=== PATIENT | female | born 1940 | race Caucasian/White ===

== ENCOUNTER 2016-09-03 09:15 | Inpatient (IN) | payer OTHER ==
[~2016-09-03] VITALS: Ht 170.2 cm; Wt 100.7 kg
[~2016-09-03 09:15] MED LIST: CALTRATE 600 +1 EACH PO; DAILY MULTIPLE1 EACH PO; IBUPROFEN400 M1 PO; METOPROLOL SUCC25 M1 PO; NAMZARIC 14 MG1 EACH PO; PROAIR HFA8.5 GM INH
--- NOTE | 2016-09-03 09:24 | NUR ---
PT BIBA FROM [facility]. PER EMS PT RESIDES IN A MEMORY CARE UNIT AT [facility] AND TODAY WHILE TRYING TO GET UP TWICE FELL ONTO HER KNEES. PT DID NOT HAVE HER WALKER NEAR HER. PT HAS NO COMPLAINTS BUT UPON ASSESSMENT OF KNEES PT GRIMACES WHEN RIGHT KNEE TOUCH. PER SPOUSE WHO IS AT BEDSIDE PT WAS AT [place] FOR A UTI IN JUNE AND TREATED WITH ABX. PT HAD A URINALYSIS AND CULTURE DONE TWO WEES AGO BUT FAMILY DOES NOT YET HAVE RESULTS
--- NOTE | 2016-09-03 09:26 | NUR ---
PT EVALUATED BY MD DILLON
--- NOTE | 2016-09-03 09:34 | ED AMS/SEIZURE/WEAK/DIZZY ---
History of Present Illness General Chief Complaint: Fall Stated Complaint: FALL Source: patient, family, old records, EMS Exam Limitations: dementia Vital Signs & Intake/Output Vital Signs & Intake/Output Vital Signs Date Time Temp Pulse Resp B/P Pulse O2 O2 Flow FiO2 Ox Delivery Rate 09/03 1434 97.2 90 18 135/73 96 Room Air 09/03 0920 98.2 90 18 142/85 97 Room Air Allergies Coded Allergies: NO KNOWN ALLERGIES (09/03/16) Reconcile Medications Acetaminophen (Mapap) 325 MG TABLET 2 TAB PO DAILY PAIN (Reported) Albuterol Sulfate (Proair Hfa) 90 MCG HFA.AER.AD 2 PUF INH Q4-6 PRN PRN BREATHING PROBLEMS (Reported) Bifidobacterium Infantis (Align) 4 MG (1 BILLION CELL) CAPSULE 1 CAP PO DAILY GI (Reported) Calcium Carbonate/Vitamin D3 (Calcium + Vitamin D Tablet) 600 MG-200 TABLET 1 TAB PO DAILY SUPPLEMENT (Reported) Citalopram Hydrobromide (Citalopram HBr) 10 MG TABLET 1 TAB PO DAILY MENTAL HEALTH (Reported) Cyanocobalamin (Vitamin B-12) 1,000 MCG TABLET 1 TAB PO DAILY SUPPLEMENT ( Reported) Hydrochlorothiazide 12.5 MG TABLET 1 TAB PO DAILY WATER PILL (Reported) Ibuprofen 400 MG TABLET 1 TAB PO Q6P PRN PAIN (Reported) Levothyroxine Sodium 88 MCG TABLET 1 TAB PO DAILY AC THYROID (Reported) Memantine HCl/Donepezil HCl (Namzaric 14 MG-10 MG Capsule) 14 MG-10 MG CAP.SPR.24 1 CAP PO DAILY DEMENTIA (Reported) Metoprolol Succinate 25 MG TAB 1 TAB PO DAILY HEART (Reported) Multivitamin (Daily Multiple Vitamin) 1 EACH TABLET 1 TAB PO DAILY SUPPLEMENT (Reported) Ennis-3 Fatty Acids/Fish Oil (Fish Oil 1,000 MG Capsule) 340 MG-1,000 MG CAPSULE 1 CAP PO DAILY SUPPLEMENT (Reported) Oxybutynin Chloride (Oxybutynin Chloride ER) 10 MG TAB.ER.24 1 TAB PO DAILY BLADDER (Reported) Ramipril 10 MG CAPSULE 1 CAP PO DAILY UNKNOWN (Reported) Ubidecarenone (Co Q-10) 100 MG CAPSULE 1 TAB PO DAILY SUPPLEMENT (Reported) Triage Note: PT BIBA FROM [facility]. PER EMS PT RESIDES IN A MEMORY CARE UNIT AT [facility] AND TODAY WHILE TRYING TO GET UP TWICE FELL ONTO HER KNEES. PT DID NOT HAVE HER WALKER NEAR HER. PT HAS NO COMPLAINTS BUT UPON ASSESSMENT OF KNEES PT GRIMACES WHEN RIGHT KNEE TOUCH. PER SPOUSE WHO IS AT BEDSIDE PT WAS AT [place] FOR A UTI IN JUNE AND TREATED WITH ABX. PT HAD A URINALYSIS AND CULTURE DONE TWO WEES AGO BUT FAMILY DOES NOT YET HAVE RESULTS Triage Nurses Notes Reviewed? yes Onset: Just prior to arrival Duration: hour(s):, continues in ED Timing: recent history Injury Environment: home Severity: moderate Modifying Factors: Improves With: rest. Worsens With: movement. LMP (ages 10-50): post menopausal : No Patient currently breastfeeds: No HPI: Prior to admission patient collapsed to knees 2. There was no fever chills nausea vomiting diarrhea abdominal pain chest pain shortness breath headache dysuria rash bleeding. She was admitted to [facility] in June for presumed seizure activity and UTI. EEG demonstrated no focal abnormalities no antiepileptics ordered. Past History Travel History Traveled to [place] past 21 day No Medical History Any Pertinent Medical History? 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 No Review of Systems Review of Systems Constitutional: Reports: see HPI, weakness. EENTM: Reports: no symptoms. Respiratory: Reports: no symptoms. Cardiovascular: Reports: no symptoms. GI: Reports: no symptoms. Genitourinary: Reports: no symptoms. Musculoskeletal: Reports: see HPI, joint pain. Skin: Reports: no symptoms. Neurological/Psychological: Reports: no symptoms. Hematologic/Endocrine: Reports: no symptoms. Immunologic/Allergic: Reports: no symptoms. All Other Systems: Reviewed and Negative Physical Exam Physical Exam General Appearance: well developed/nourished, alert, awake, anxious, mild distress, obese Head: atraumatic, normal appearance Eyes: Bilateral: normal appearance, PERRL, EOMI. Ears, Nose, Throat: normal pharynx, normal ENT inspection, hearing grossly normal, moist mucus membranes Neck: normal inspection, supple, full range of motion, no midline tenderness Respiratory: normal breath sounds, chest non-tender, no respiratory distress, quiet respiration, lungs clear Cardiovascular: regular rate/rhythm, normal peripheral pulses, norml femoral pulses equa Peripheral Pulses: 4+ carotid (R), 4+ carotid (L) Gastrointestinal: normal bowel sounds, soft, non-tender, no organomegaly Back: normal inspection, normal range of motion, no vertebral tenderness Extremities: normal range of motion, no ligament instability Neurologic/Psych: no motor/sensory deficits, awake, alert, normal mood/affect, disoriented x 3 Reflexes: 2+: bicep (R), bicep (L). Skin: intact, normal color, warm/dry Lymphatic: no anterior cervical sixto Core Measures ACS in differential dx? No CVA/TIA Diagnosis: No Severe Sepsis Present: No Septic Shock Present: No Progress Differential Diagnosis: dehydration, electrolyte imbalance, hypoxia, UTI/pyelo Plan of Care: Orders Procedure Date/time Status Regular Diet 09/04 D Active Heart Healthy Diet 09/03 D Active Pathway - chart 09/03 1335 Active Pathway - chart 09/03 1334 Active House Staff 09/03 1334 Active Patient Data 09/03 1334 Active Code Status 09/03 1334 Active Patient Data 09/03 1320 Active OXYGEN SETUP (GEN) 09/03 1259 Active Saline Lock 09/03 1259 Active Admit to inpatient 09/03 1259 Active Vital Signs 09/03 1259 Active Activity/Ambulation 09/03 1259 Active Code Status 09/03 1259 Complete Add-on Test (ER Only) 09/03 1242 Active EKG 09/03 1219 Active CULTURE,URINE 09/03 1203 Active Intake & Output 09/03 1133 Active URINALYSIS 09/03 0926 Complete TROPONIN LEVEL 09/03 0926 Complete COMPREHENSIVE METABOLIC PANEL 09/03 0926 Complete CBC WITHOUT DIFFERENTIAL 09/03 0926 Complete VTE Mechanical Prophylaxis 09/03 UNK Active Current Medications Sig/Allen Start time Last Medication Dose Stop Time Status Admin Calcium/Vitamin D 1 TAB DAILY 09/04 1000 UNVr (Caltrate 600 + D) Citalopram 10 MG DAILY 09/04 1000 UNVr Hydrobromide (Celexa) Cyanocobalamin 1,000 MCG DAILY 09/04 1000 UNVr (Vitamin B12) Hydrochlorothiazide 12.5 MG DAILY 09/04 1000 UNVr (Hydrodiuril) Lisinopril 10 MG DAILY 09/04 1000 UNVr (Prinivil) Metoprolol Tartrate 25 MG DAILY 09/04 1000 UNVr (Lopressor) Multivitamins 1 TAB DAILY 09/04 1000 AC Therapeutic (Theragran-M Vitamins Tabs) Levothyroxine Sodium 0.088 MG DAILY AC 09/04 0700 UNVr (Synthroid) Oxybutynin Chloride 10 MG BID 09/03 2200 UNVr (Ditropan) Albuterol Sulfate 2 PUF Q4-6 PRN PRN 09/03 1430 UNVr (Ventolin) Non-Formulary 0 SEE ADMIN CRITERIA 09/03 1430 UNVr Medication (NON FORMULARY) Non-Formulary 0 SEE ADMIN CRITERIA 09/03 1430 UNVr Medication (NON FORMULARY) Acetaminophen 325 MG Q6 PRN 09/03 1345 AC (Tylenol) Oxycodone HCl 5 MG Q6H PRN 09/03 1345 AC (Roxicodone) Oxycodone/ 2 TAB Q6 PRN 09/03 1345 AC Acetaminophen (Percocet) Laboratory Tests 09/03/16 1203: Urinalysis LIGHT H, Urine Color YEL, Urine Clarity HAZY H, Urine pH 6.0, Ur Specific [place] 1.020, Urine Protein TRACE H, Urine Ketones TRACE H, Urine Nitrite POS H, Urine Bilirubin NEG, Urine Urobilinogen 0.2, Ur Leukocyte Esterase SMALL H, Ur Microscopic SEDIMENT EXAMINED, Urine RBC 1-3, Urine WBC 25 -50 H, Ur Epithelial Cells FEW, Urine Bacteria MANY H, Urine Mucus FEW, Urine Hemoglobin SMALL H, Urine Glucose NEG 09/03/16 1133: Anion Gap 9, Estimated GFR > 60, BUN/Creatinine Ratio 16.7, Glucose 131 H, Calcium 9.4, Total Bilirubin 0.5, AST 32, ALT 42, Alkaline Phosphatase 68, Troponin I 0.02, Total Protein 7.3, Albumin 4.0, Globulin 3.3, Albumin/Globulin Ratio 1.2, CBC w Diff NO MAN DIFF REQ, RBC 4.58, MCV 87.4, MCH 28.7, RDW 15.6 H , MPV 8.5, Gran % 84.9 H, Lymphocytes % 8.7 L, Monocytes % 5.9, Eosinophils % 0.3, Basophils % 0.2, Absolute Granulocytes 11.1 H, Absolute Lymphocytes 1.1 L , Absolute Monocytes 0.8 H, Absolute Eosinophils 0, Absolute Basophils 0, PUBS MCHC 32.9 L Microbiology 09/03 1203 URINE ROUT: Urine Culture - RECD Diagnostic Imaging: Viewed by Me: Radiology Read. Discussed w/RAD: Radiology Read. CXR Impression: no acute abnormality Initial ED EKG: normal axis, normal intervals, normal p-waves, normal QRS complex, normal sinus rhythm, no ST T wave changes Prior EKG: unchanged Rhythm Strip: normal sinus rhythm Departure Departure Disposition: STILL A PATIENT Condition: Stable Clinical Impression Primary Impression: UTI (urinary tract infection) Qualifiers: Urinary tract infection type: site unspecified Hematuria presence: with hematuria Qualified Codes: N39.0 - Urinary tract infection, site not specified; R31.9 - Hematuria, unspecified Secondary Impressions: Asthenia Leukocytosis Qualifiers: Leukocytosis type: unspecified Qualified Code: D72.829 - Elevated white blood cell count, unspecified Referrals: UNKNOWN (PCP/Family) Departure Forms: Customer Survey General Discharge Information Admission Note Spoke With: NELSY MUKHERJEE MD Documentation of Exam: Documentation of any treatments & extenuating circumstances including Concerns Regarding Discharge (functional status, medication knowledge or non-compliance, living conditions, etc.) that warrant an admission rather than observation: IV antibiotics medication adjustment physical therapy follow cultures ensure safety as patient has had multiple falls unable to ambulate safely without assist of 2 continuing care discharge planning
[2016-09-03] MEDS ORDERED: CITALOPRAM HBR10 MG PO (10:21)
[2016-09-03] MEDS ORDERED: OXYBUTYNIN CHLO10 M1 PO (10:21)
[2016-09-03] MEDS ORDERED: HYDROCHLOROTH12.5 M2 PO (10:22)
[2016-09-03] MEDS ORDERED: RAMIPRIL10 M1 PO (10:22)
--- NOTE | 2016-09-03 10:22 | RADIOLOGY REPORT ---
EXAMINATION: XR CHEST CLINICAL INFORMATION: Pneumonia COMPARISON: Chest x-ray dated 06/24/2011 TECHNIQUE: 2 views of the chest were obtained. FINDINGS: Mild cardiomegaly. Low lung volumes. No acute airspace disease. Degenerative changes of the thoracic spine. IMPRESSION: No acute pulmonary disease.
[2016-09-03] MEDS ORDERED: VITAMIN B-121000 MC3 PO (10:24)
[2016-09-03] MEDS ORDERED: CO Q-10100 MG PO (10:25)
[2016-09-03] MEDS ORDERED: CALCIUM + VITA1 EAC1 PO (10:25)
[2016-09-03] MEDS ORDERED: FISH OIL 1,0001 EACH PO (10:26)
[2016-09-03] MEDS ORDERED: MAPAP325 M1 PO (10:27)
[2016-09-03] MEDS ORDERED: ALIGN4 M1 PO (10:28)
[2016-09-03] MEDS ORDERED: IBUPROFEN400 M1 PO (10:29)
[2016-09-03] MEDS ORDERED: LEVOTHYROXINE88 MCG PO (10:29)
[2016-09-03] MEDS ORDERED: PROAIR HFA8.5 GM INH (10:30)
--- NOTE | 2016-09-03 11:33 | NUR ---
ATTEMPTED TO AMBULATE WITH WALKER A FEW STEPS, UNABLE TO FOLLOW COMMANDS WELL, UNSTEADY ON FEET. CONFUSED CONVERSATION.
[2016-09-03 11:41] LABS: ABSOLUTE BASOPHIL COUNT 0 /CUMM (0.0-0.2); ABSOLUTE EOSINOPHIL COUNT 0 /CUMM (0.0-0.7); ABSOLUTE GRANULOCYTE CT 11.1 /CUMM (1.4-6.5); ABSOLUTE LYMPH COUNT 1.1 /CUMM (1.2-3.4); ABSOLUTE MONOCYTE COUNT 0.8 /CUMM (0.10-0.60); BASOPHIL % 0.2 % (0.0-2.0); EOSINOPHIL % 0.3 % (0-5); HEMATOCRIT 40.1 % (37-47); MEAN CORPUSCULAR HGB 28.7 PG (27.0-31.0); MEAN CORPUSCULAR HGB CONC 32.9 G/DL (33.0-37.0); MEAN CORPUSCULAR VOLUME 87.4 FL (81.0-99.0); MEAN PLATELET VOLUME 8.5 FL (7.4-10.4); PLATELET COUNT 228 /CUMM (130-400); RBC DISTRIBUTION WIDTH 15.6 % (11.5-14.5); RED BLOOD CELL CT 4.58 /CUMM (4.20-5.40); WHITE BLOOD CELL COUNT 13.1 /CUMM (4.8-10.8)
[2016-09-03 11:58] LABS: GRANULOCYTE % 84.9 % (42.2-75.2)
--- NOTE | 2016-09-03 12:03 | NUR ---
STRAIGHT CATHETERIZED FOR UA, 50 ML FOUL-SMELLING URINE OBTAINED. URINE TRIO SENT. PT REMAINS CONFUSED.
--- NOTE | 2016-09-03 12:33 | NUR ---
DIETARY CALLED FOR LUNCH TRAY.
--- NOTE | 2016-09-03 13:30 | NUR ---
INCONTINENT LARGE AMOUNT OF URINE LINE CHANGED. PERICARE GIVEN. REPOSITIONED. SKIN IS INTACT, NO BREAKDOWN.
--- NOTE | 2016-09-03 13:39 | History & Physical ---
MARY CH,HUMPHREY 09/03/16 1338: General Information and HPI MD Statement: I have seen and personally examined ALICIA CASEY and documented this H&P. The patient is a 76 year old F who was brought in by ambulance after sustaining a fall injury and weakness this morning. Source of Information: family Exam Limitations: dementia, history obtained from patient's History of Present Illness: 76 yo F with past medical history of dementia, hypertension, hyperlipidemia, hypothyroidism, GERD, recent admission at [facility] for UTI and a fall injury, was brought in by ambulance after sustaining to fall injuries earlier today, and increasing weakness. Most of the history was obtained from her , who does not live with her as the patient is living at [facility]. According to the patient 's , patient was had been feeling weak since past few days, and had a mechanical fall around 8 AM twice this morning. History is questionable here as he tells us that the patient was weak and he also mentioned that that the patient was a little lightheaded and woozy when she fell which was unwitnessed, but denied any chest pain, palpitation, shortness of breath, nausea, vomitting at the time. He did mention that the patient had similar symptoms in the beginning of June this year, when she was weak and fell down and was taken to [facility], diagnosed to have urinary tract infection, and was ruled out for any seizures after obtaining a normal EEG. He denied any loss of consciousness, incontinence, although the patient has incontinence at baseline, also denied any abnormal body movements, up rolling of eyes, froathing from her mouth. He mentioned that she probably fell down on her knees and has red area over her right knee. Patient's also mentioned that she has urinary urgency, that is, cannot hold her urine, but denies any abdominal pain, burning sensation, discoloration of urine, discharge from genitalia. Patient seemed comfortable during the whole interview and did not appear in any distress. I doubt if the patient was comprehending the whole conversation. 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 Ambulation: walker IADLs Needs Assist: shopping, housework, finances, food prep, telephone, transportation, medication admin. Review of Systems Review of Systems Constitutional: Reports: see HPI, weakness. Denies: chills, diaphoresis, fever. EENTM: Reports: no symptoms. Cardiovascular: Reports: no symptoms. Respiratory: Reports: no symptoms. GI: Reports: no symptoms. Genitourinary: Reports: see HPI, urgency. Denies: discharge, dysuria, frequency, hematuria, nocturia, pain. Musculoskeletal: Reports: no symptoms. Skin: Reports: see HPI. Neurological/Psychological: Reports: no symptoms, dementia. Hematologic/Endocrine: Reports: no symptoms. All Other Systems: Reviewed and Negative Post Menopausal: Yes Exam & Diagnostic Data Last 24 Hrs of Vital Signs/I&O Vital Signs Date Time Temp Pulse Resp B/P Pulse O2 O2 Flow FiO2 Ox Delivery Rate 09/03 2046 99.0 69 20 136/80 95 Room Air 09/03 2044 69 136/80 09/03 1845 99.6 80 18 112/70 95 Room Air 09/03 1604 80 18 119/57 98 Room Air 09/03 1434 97.2 90 18 135/73 96 Room Air 09/03 1230 98.9 76 20 136/80 100 09/03 0920 98.2 90 18 142/85 97 Room Air Intake & Output 09/03 1600 09/03 0800 09/03 0000 Intake Total 120 Output Total 50 Balance 70 Intake, IV 110 Intake, Oral 10 Output, Urine 50 Last 24 Hrs of Labs/[place]: Laboratory Tests 09/03/16 1203: Urinalysis LIGHT H, Urine Color YEL, Urine Clarity HAZY H, Urine pH 6.0, Ur Specific [place] 1.020, Urine Protein TRACE H, Urine Ketones TRACE H, Urine Nitrite POS H, Urine Bilirubin NEG, Urine Urobilinogen 0.2, Ur Leukocyte Esterase SMALL H, Ur Microscopic SEDIMENT EXAMINED, Urine RBC 1-3, Urine WBC 25 -50 H, Ur Epithelial Cells FEW, Urine Bacteria MANY H, Urine Mucus FEW, Urine Hemoglobin SMALL H, Urine Glucose NEG 09/03/16 1133: Anion Gap 9, Estimated GFR > 60, BUN/Creatinine Ratio 16.7, Glucose 131 H, Calcium 9.4, Total Bilirubin 0.5, AST 32, ALT 42, Alkaline Phosphatase 68, Troponin I 0.02, Total Protein 7.3, Albumin 4.0, Globulin 3.3, Albumin/Globulin Ratio 1.2, CBC w Diff NO MAN DIFF REQ, RBC 4.58, MCV 87.4, MCH 28.7, RDW 15.6 H , MPV 8.5, Gran % 84.9 H, Lymphocytes % 8.7 L, Monocytes % 5.9, Eosinophils % 0.3, Basophils % 0.2, Absolute Granulocytes 11.1 H, Absolute Lymphocytes 1.1 L , Absolute Monocytes 0.8 H, Absolute Eosinophils 0, Absolute Basophils 0, PUBS MCHC 32.9 L Microbiology 09/03 1445 BLOOD: Blood Culture - COLB 09/03 1445 BLOOD: Blood Culture - COLB 09/03 1203 URINE ROUT: Urine Culture - RECD Diagnostic Data CXR Results IMPRESSION: No acute pulmonary disease. DICTATED BY: AVERY CARROLL MD DATE/TIME DICTATED:09/03/161016 MOLD MAKER PLASTIC MOLDS:FRANNY DATE/TIME TRANSCRIBED:09/03/161016 Other Results Physical examnination: General: obese patient, not in distress Head: Normocephalic, atraumatic Eyes: Pupils normal in size, regular, reacting to light and accommodation, EOM normal Ears: B/l normal on inspection Nose: Normal on inspection Throat/mouth: Dry mucosa Neck: Supple, full range of motion, no thyromegaly Heart: Regular rate, regular rhythm Lung: Normal breath sound bilaterally Added sound not heard Abd: Soft, Right CVA tender, no distention appreciated Extremities: B/l knees can move easily, with mild erythema over right knee skin, no open wound, pedal edema present b/l Neurologic: Alert, demented at baseline, Speech is clear, is able to say "that hurts" on pain Skin: Warm and dry Assessment/Plan Assessment: 76 yo F with past medical history of dementia, hypertension, hyperlipidemia, hypothyroidism, GERD, recent admission at [facility] for UTI and a fall injury, was brought in by ambulance after sustaining to fall injuries earlier today, and increasing weakness. Patient's vitals were stable on presentation at the emergency department, lab work was significant for leukocytosis at 13.1, with 84.9% granulocytes, and a positive urinalysis for pyuria. Urine culture was sent on the emergency department and the patient received 1 dose of IV antibiotics there. Chest x-ray is not significant for any cardiopulmonary pathology. Patient is currently being managed in the general medical floor for the following issues: #Urinary tract infection, pyelonephritis Patient is having a second episode of urinary tract infection within 3 months, has incontinence, and has pyelonephritis clinically, and a positive urinalysis for pyuria. Need to assess for any urinary tract stones or obstruction that can predispose her to frequent urinary tract infections. -IV hydration with normal saline -IV ceftriaxone for now -Follow-up urine and blood cultures, and narrow antibiotics accordingly -Renal ultrasound to rule out any hydronephrosis, urinary tract stones or obstructions as a cause of repeated urinary tract infections -Continue oxygen treatment for bladder incontinence #Mechanical fall, secondary to physical deconditioning and weakness -Check orthostatic vitals -We'll continue to monitor right knee for any changes tomorrow -IV hydration with normal saline -Physical therapy evaluation #Hypertension -Continue home medication with hydro-thiazides and metoprolol #Dementia -Continue memantine, donepezil, multivitamins, vitamin B12 #Depression -Continue home medication of citalopram #Continue albuterol, as home medication #Regular diet #DVT prophylaxis with subcutaneous Lovenox #DNR/DNI CODE STATUS As Ranked By This Provider Problem List: 1. UTI (urinary tract infection) Qualifiers Urinary tract infection type: site unspecified Hematuria presence: with hematuria Qualified Codes: N39.0 - Urinary tract infection, site not specified; R31.9 - Hematuria, unspecified 2. Pyelonephritis Core Measures/Miscellaneous Acute Coronary Syndrome ACS Diagnosis: No Cerebrovascular Accident CVA/TIA Diagnosis: No Congestive Heart Failure CHF Diagnosis: No Venous Thromboembolism VTE Risk Factors: Age > 40 [facility] prophylaxis d/t: No contraindications No VTE Pharm Prophylaxis d/t: No contraindications VTE Diagnosis: No VTE Type: NONE VTE Confirmed by (Test): NONE Severe Sepsis Severe Sepsis Present: No Septic Shock Septic Shock Present: No Miscellaneous Documentation Attending Case Discussed With: ITA CH,JARVIS Taylor Primary Care Physician: UNKNOWN Patient sees these Specialists Internal medicine Level of Patient Care: General Medicine YUKI DANIELLE 09/03/16 1608: Resident Review Statement Resident Statement: examined this patient, discussed with rn internship Other Findings: Patient is a 76-year-old female with past medical history of dementia, hypertension, hyperlipidemia, GERD, hiatal hernia, hypothyroidism who was brought in by ambulance from rehabilitation facility with a chief complaint of weakness and fallsX2 this morning. Patient decides that the memory care unit at [facility]. Most of the history is obtained from her . The patient has been feeling weak in her legs and had 2 episodes of mechanical fall this morning. At baseline, she uses a walker to walk but today she is not using the walker. First episode of fall happened around 8 AM in the morning which was unwitnessed. She fell down on the floor and was helped up by the nurses at the facility. She was weak in her legs and had a second fall in a similar a little while later. She denied any headaches, dizziness, aura, LOC, chest pain, palpitations , nausea, vomiting, abdominal pain, bowel incontinence. Reported no fever, chills, sick contacts, recent travel. She admits to increased urgency of urination however denies any dysuria, hematuria, back pain. She is incontinent at baseline and uses a diaper at the facility. Of note, patient was admitted with similar complaints of weakness and mechanical fall and was admitted at [facility] in June 2016. She was treated with IV antibiotics for a UTI and also had a syncope/seizure workup. She had an EEG at that time which was normal. Patient does not smoke, no alcohol abuse, no drug use. In the ER vitals temperature 98.2, pulse 90, respiration 18, blood pressure 142/ 85, saturating 97% on room. White count of 13.1 with no bandemia, sodium 139, potassium 4, creatinine 0.9, BUN 15, normal LFTs, troponin negative. UA showed hazy urine, trace ketones, trace protein, nitrate positive, small leukocyte esterase, 25 -50 WBCs, many bacteria, small hemoglobin. Physical examination: Gen.: Obese, alert oriented X2 HEENT: PERRLA, EOMI Chest: Clear breath sounds CVS: No murmur, S1 and S2 heard Abdomen: Bowel sounds positive, no tenderness,+++ CVA tenderness on the right side Extremities: 1+ pitting edema on the bilateral ankles. Dry and scaly skin on bilateral legs. Erythematous areas seen over the right knee with tenderness upon palpation. No ROM. Neurological: Power 5/5 in all extremities, cranial nerves intact, reflexes intact pulses intact. Plan: 1.Urinary tract infection. Second episode due to UTI in 2 months. Positive CVA tenderness. Urinary incontinence(chronic) -Admit patient to [facility] -IV hydration with normal saline at 100 mL an hour( 2 bags) -IV ceftriaxone pending culture and sensitivities -Blood cultures and urine cultures sent -Renal ultrasound to rule out hydronephrosis -Tylenol for fever -CBCs in am. -Continue oxybutynin for incontinence bladder. 2. Mechanical fall 2/2 physical deconditioning and weakness and UTI -Check orthostatic vitals -IV hydration with normal saline -Physical therapy evaluation 3. Hypertension -Continue home meds, HCTZ and metoprolol 4. Dementia -Continue Memantine/ Donezepil -Continue B12 and multivitamin Continue home meds citalopram and albuterol DVT prophylaxis subcutaneous Lovenox Regular diet Mild pain pathway DNR/DNI JARVIS JEAN BAPTISTE 09/24/162100: General Information and HPI Allergies/Medications Home Med list Acetaminophen (Mapap) 325 MG TABLET 2 TAB PO DAILY PAIN (Reported) Albuterol Sulfate (Proair Hfa) 90 MCG HFA.AER.AD 2 PUF INH Q4-6 PRN PRN BREATHING PROBLEMS (Reported) Bifidobacterium Infantis (Align) 4 MG (1 BILLION CELL) CAPSULE 1 CAP PO DAILY GI (Reported) Calcium Carbonate/Vitamin D3 (Calcium + Vitamin D Tablet) 600 MG-200 TABLET 1 TAB PO DAILY SUPPLEMENT (Reported) Citalopram Hydrobromide (Citalopram HBr) 10 MG TABLET 1 TAB PO DAILY MENTAL HEALTH (Reported) Cyanocobalamin (Vitamin B-12) 1,000 MCG TABLET 1 TAB PO DAILY SUPPLEMENT ( Reported) Hydrochlorothiazide 12.5 MG TABLET 1 TAB PO DAILY WATER PILL (Reported) Ibuprofen 400 MG TABLET 1 TAB PO Q6P PRN PAIN (Reported) Levothyroxine Sodium 88 MCG TABLET 1 TAB PO DAILY AC THYROID (Reported) Memantine HCl/Donepezil HCl (Namzaric 14 MG-10 MG Capsule) 14 MG-10 MG CAP.SPR.24 1 CAP PO DAILY DEMENTIA (Reported) Metoprolol Succinate 25 MG TAB 1 TAB PO DAILY HEART (Reported) Multivitamin (Daily Multiple Vitamin) 1 EACH TABLET 1 TAB PO DAILY SUPPLEMENT (Reported) [place]-3 Fatty Acids/Fish Oil (Fish Oil 1,000 MG Capsule) 340 MG-1,000 MG CAPSULE 1 CAP PO DAILY SUPPLEMENT (Reported) Oxybutynin Chloride 5 MG TABLET 2.5 MG PO BID INCONTINENT BLADDER Ramipril 10 MG CAPSULE 1 CAP PO DAILY UNKNOWN (Reported) Ubidecarenone (Co Q-10) 100 MG CAPSULE 1 TAB PO DAILY SUPPLEMENT (Reported) Attending MD Review Statement Attending Statement Attending MD Statement: examined this patient, discuss w/resident/PA/GROUP TESTER, agreed w/resident/PA/GROUP TESTER, reviewed EMR data (avail), discussed with nursing Attending Assessment/Plan: Please see my attending note for more details. Agree with the above assessment and plan.
--- NOTE | 2016-09-03 14:29 | NUR ---
HOUSE STAFF HERE TO EVALUATE. AT BEDSIDE.
--- NOTE | 2016-09-03 15:30 | NUR ---
SLEEPING. IV INFUSING.
--- NOTE | 2016-09-03 15:45 | NUR ---
DR. HANNY SOMMER.
--- NOTE | 2016-09-03 16:08 | Admission Certification ---
Admission Certification Certification Statement - As attending physician, I certify that at the time of - admission, based on clinical presentation, severity of - symptoms, need for further diagnostic testing and - therapeutic interventions, and risk of adverse outcomes - without in-hospital treatment, in my clinical assessment, - this patient requires an acute hospital stay for a minimum - of two nights or longer. I have also considered psychsocial - factors such as support system, advanced age, financial - issues, cognitive issues, and failed out-patient treatments, - past re-admission history, safety of patient, and lack of - compliance as applicable. Specific rationale supporting this admission is: recurrent UTI with fall and weakness.
--- NOTE | 2016-09-03 16:12 | PN- Att Addend ---
Attending MD Review Statement Attending Statement Attending MD Statement: examined this patient, discuss w/resident/PA/CLINICAL SERVICES PROFESSIONAL, agreed w/resident/PA/CLINICAL SERVICES PROFESSIONAL, discussed with family, reviewed EMR data (avail) Attending Assessment/Plan: Laboratory Tests 09/03/16 1203: Urinalysis LIGHT H, Urine Color YEL, Urine Clarity HAZY H, Urine pH 6.0, Ur Specific [place] 1.020, Urine Protein TRACE H, Urine Ketones TRACE H, Urine Nitrite POS H, Urine Bilirubin NEG, Urine Urobilinogen 0.2, Ur Leukocyte Esterase SMALL H, Ur Microscopic SEDIMENT EXAMINED, Urine RBC 1-3, Urine WBC 25 -50 H, Ur Epithelial Cells FEW, Urine Bacteria MANY H, Urine Mucus FEW, Urine Hemoglobin SMALL H, Urine Glucose NEG 09/03/16 1133: Anion Gap 9, Estimated GFR > 60, BUN/Creatinine Ratio 16.7, Glucose 131 H, Calcium 9.4, Total Bilirubin 0.5, AST 32, ALT 42, Alkaline Phosphatase 68, Troponin I 0.02, Total Protein 7.3, Albumin 4.0, Globulin 3.3, Albumin/Globulin Ratio 1.2, CBC w Diff NO MAN DIFF REQ, RBC 4.58, MCV 87.4, MCH 28.7, RDW 15.6 H , MPV 8.5, Gran % 84.9 H, Lymphocytes % 8.7 L, Monocytes % 5.9, Eosinophils % 0.3, Basophils % 0.2, Absolute Granulocytes 11.1 H, Absolute Lymphocytes 1.1 L , Absolute Monocytes 0.8 H, Absolute Eosinophils 0, Absolute Basophils 0, PUBS MCHC 32.9 L Vital Signs Date Time Temp Pulse Resp B/P Pulse O2 O2 Flow FiO2 Ox Delivery Rate 09/03 1604 80 18 119/57 98 Room Air 09/03 1434 97.2 90 18 135/73 96 Room Air 09/03 1230 98.9 76 20 136/80 100 09/03 0920 98.2 90 18 142/85 97 Room Air 76-year-old female with the past medical history of dementia who was brought from memory care unit in [place]. Her other significant past medical history includes hypertension hyperlipidemia and GERD. Patient had a fall at the facility at 8 AM this morning. It was a mechanical fall and patient reported no dizziness no loss of consciousness. She did report feeling weak in her knees prior to the fall. Denies any fever or chills or dysuria. She does complain of some urinary urgency. Patient had a similar fall in June and was found to have a UTI for which she was admitted to [facility] for 4 days. In ER patient was found to have a urinary tract infection with UA showing WBCs and nitrite positive. Her white count was elevated at 13.1 and chest x-ray done in ER did not show any signs of pneumonia. Assessment and plan- Recurrent UTI in patient with incontinence both urinary and fecal. We'll get a renal ultrasound given that she has mild right CVA tenderness. Started on ceftriaxone. Discussed with patient's at bedside the care plan.
--- NOTE | 2016-09-03 18:42 | NUR ---
REQUESTING MOTIRN FOR PT'S BACK PAIN, (CHRONIC). MEDICATED WITH MOTIRN 400 MG.
--- NOTE | 2016-09-03 18:55 | NUR ---
INCONTINENT LARGE AMOUNT OF URINE , LINEN CHANGED, DANII CARE GIVEN.
--- NOTE | 2016-09-03 19:41 | NUR ---
[facility] ASSIGNMENT [phone]
--- NOTE | 2016-09-03 19:52 | NUR ---
REPORT GIVEN TO SHARIF TEJEDA
--- NOTE | 2016-09-03 19:53 | NUR ---
[facility] CALLED FOR TRANSPORT
--- NOTE | 2016-09-03 20:23 | NUR ---
REPORT RECIEVED FROM SHARIF MEDRANO IN ED. PT ARRIVED TO ROOM 233 [facility]IA [facility]. PT ALERT AND PLEASANTLY CONFUSED. AT BEDSIDE. NS INFUSING THROUGH #20 IN [facility]. PT DENIES PAIN AT THIS TIME. PATIENT AND ORIENTED TO ROOM AND CALL BUTTON.
[2016-09-03 20:44] VITALS: BP 136/80
[2016-09-03 20:47] VITALS: BP 136/80
--- NOTE | 2016-09-03 21:22 | NUR ---
ADMISSION NOTE- PT ARRIVED TO FLOOR. ALERT, CONFUSED, CALM AND COOPERATIVE. ON RA. LUNGS CLEAR. ABD SOFTLY DISTENDED, UNAWARE OF LBM ? YESTERDAY PER . SKIN INTACT, 1-2+ EDEMA TO BLE. WEAK, ABLE TO STAND TO PERFORM ORTHOSTATIC VS WITH ASSIST OF 2. ATE 50% OF DINNER AT THIS TIME. DENIES PAIN OR DISCOMFORT BUT OCCASIONALLY STATES "OW!" WHEN MOVING. WILL CONTINUE TO MONITOR. AT BEDSIDE. BED ALARM IN PLACE. WILL CONTINUE TO MONITOR.
[2016-09-03 22:45] VITALS: BP 130/82
--- NOTE | 2016-09-04 01:27 | ULTRASOUND REPORT ---
EXAMINATION: US RETROPERITONEAL COMPLETE (RENAL) CLINICAL INFORMATION: Evaluate for hydronephrosis. Costovertebral angle tenderness.. COMPARISON: No relevant prior imaging is available. TECHNIQUE: Real-time imaging of the kidneys and bladder. FINDINGS: RIGHT KIDNEY: 9.7 x 5.0 x 5.1 cm (SAG x AP x TRV). The kidney is normal in size, contour, and echogenicity. Renal cortical thickness is normal. There is a well marginated cystic lesion at the mid to lower pole of the right kidney that measures 1.2 cm in maximal dimension. No other focal parenchymal lesions. LEFT KIDNEY: 9.4 x 5.0 x 5.5 cm (SAG x AP x TRV). The kidney is normal in size, contour, and echogenicity. Renal cortical thickness is normal. No calculi or focal parenchymal lesions. No hydronephrosis. BLADDER: The bladder was empty and therefore cannot be effectively evaluated. IMPRESSION: Unremarkable renal ultrasound with no evidence of nephrolithiasis or hydronephrosis.
[2016-09-04 06:43] VITALS: BP 130/74
--- NOTE | 2016-09-04 07:08 | PN- Housestaff ---
Subjective Follow-up For: Recurrent urinary tract infection Complaints: no complaints Subjective: I followed up and examined the patient today. She was resting comfortably in her chair, comfortable, not in apparent distress, vitals stable, no complaints, no issues overnight. However, I doubt if the patient understood anything about my follow up this morning due to her baseline dementia. She was straight catheterized at 8 AM this morning with 400 mL of urine, however her ultrasound of bladder did not show any residual urine yesterday. Review of Systems Constitutional: Reports: no symptoms. Cardiovascular: Reports: no symptoms. Respiratory: Reports: no symptoms. Gastrointestinal: Reports: no symptoms. Genitourinary: Reports: no symptoms. Musculoskeletal: Reports: no symptoms. Objective Last 24 Hrs of Vital Signs/I&O Vital Signs Date Time Temp Pulse Resp B/P Pulse O2 O2 Flow FiO2 Ox Delivery Rate 09/04 1449 98.0 62 20 138/74 98 09/04 1448 Room Air 09/04 1051 65 130/68 09/04 1051 65 130/68 09/04 0643 98.2 69 18 130/74 95 Room Air 09/03 2245 98.3 67 20 130/82 96 Room Air 09/03 2047 99.0 69 20 136/80 95 Room Air 09/03 2044 69 136/80 09/03 1845 99.6 80 18 112/70 95 Room Air Intake & Output 09/04 1600 09/04 0800 09/04 0000 Intake Total 1050 1040 Output Total 400 Balance 1050 640 Intake, IV 600 800 Intake, Oral 450 240 Output, Urine 400 Patient 100.698 kg Weight Physical Exam General Appearance: Alert, Oriented X3, Cooperative, No Acute Distress Other Physical Findings: General: obese patient, not in distress Head: Normocephalic, atraumatic Eyes: Pupils normal in size, regular, reacting to light and accommodation, EOM normal Ears: B/l normal on inspection Nose: Normal on inspection Throat/mouth: Dry mucosa Neck: Supple, full range of motion, no thyromegaly Heart: Regular rate, regular rhythm Lung: Normal breath sound bilaterally Added sound not heard Abd: Soft, CVA NOT tender today, no distention appreciated Extremities: B/l knees can move easily, with mild erythema over right knee skin, no open wound, pedal edema present b/l Neurologic: Alert, demented at baseline, Speech is clear, is able to say "that hurts" on pain Skin: Warm and dry Current Medications: Current Medications Sig/Allen Start time Last Medication Dose Route Stop Time Status Admin Acetaminophen 325 MG Q6 PRN 09/03 1345 AC PO Albuterol Sulfate 2 PUF Q4-6 PRN PRN 09/03 1430 AC INH Calcium/Vitamin D 1 TAB DAILY 09/04 1000 AC 09/04 PO 1051 Ceftriaxone Sodium 1,000 MG DAILY 09/05 1000 AC IV Citalopram 10 MG DAILY 09/04 1000 AC 09/04 Hydrobromide PO 1051 Cyanocobalamin 1,000 MCG DAILY 09/04 1000 AC 09/04 PO 1052 Donepezil HCl 10 MG AT BEDTIME 09/03 2200 AC 09/04 PO 0100 Enoxaparin Sodium 40 MG DAILY 09/03 1333 AC 09/04 SC 1036 Hydrochlorothiazide 12.5 MG DAILY 09/04 1000 AC 09/04 PO 1051 Ibuprofen 400 MG ONCE ONE 09/03 1845 DC 09/03 PO 09/03 1846 1842 Ibuprofen 0 .STK-MED ONE 09/03 1841 DC PO Lactobacillus 1 CAP DAILY 09/04 1000 AC 09/04 Acidophilus PO 1051 Levothyroxine Sodium 0.088 MG DAILY AC 09/04 0700 AC 09/04 PO 0703 Lisinopril 10 MG DAILY 09/04 1000 AC 09/04 PO 1051 Memantine 5 MG BID 09/03 2200 AC 09/04 PO 1051 Metoprolol Succinate 25 MG DAILY 09/04 1000 AC 09/04 PO 1051 Multivitamins 1 TAB DAILY 09/04 1000 AC 09/04 Therapeutic PO 1051 Oxybutynin Chloride 2.5 MG BID 09/04 2200 AC PO Oxybutynin Chloride 5 MG BID 09/03 2200 DC 09/04 PO 1052 Oxycodone HCl 5 MG Q6H PRN 09/03 1345 AC 09/03 PO 2223 Oxycodone/ 2 TAB Q6 PRN 09/03 1345 AC Acetaminophen PO Sodium Chloride 1,000 ML Q10H 09/03 1445 DC 09/04 IV 09/04 1044 0254 Last 24 Hrs of Lab/Keagan Results Last 24 Hrs of Labs/Mics: Laboratory Tests 09/04/16 0710: Anion Gap 7, Estimated GFR > 60, BUN/Creatinine Ratio 17.8, CBC w Diff NO MAN DIFF REQ, RBC 3.90 L, MCV 88.0, MCH 28.9, RDW 15.9 H, MPV 8.6, Gran % 62.7, Lymphocytes % 21.7, Monocytes % 10.0 H, Eosinophils % 5.0, Basophils % 0.6, Absolute Granulocytes 4.3, Absolute Lymphocytes 1.5, Absolute Monocytes 0.7 H, Absolute Eosinophils 0.3, Absolute Basophils 0, PUBS MCHC 32.8 L Microbiology 09/04 1140 BLOOD: Blood Culture - RECD 09/04 1120 BLOOD: Blood Culture - RECD Assessment/Plan Assessment: 76 yo F with past medical history of dementia, hypertension, hyperlipidemia, hypothyroidism, GERD, recent admission at [facility] for UTI and a fall injury, was brought in by ambulance after sustaining to fall injuries earlier on the day of admission, and increasing weakness. Patient's vitals were stable on presentation at the emergency department, lab work was significant for leukocytosis at 13.1, with 84.9% granulocytes, and a positive urinalysis for pyuria. Urine culture was sent on the emergency department and the patient received 1 dose of IV antibiotics there. Chest x-ray was not significant for any cardiopulmonary pathology. Patient is currently being managed in the general medical floor for the following issues: #Urinary tract infection, pyelonephritis Patient is having a second episode of urinary tract infection within 3 months, has incontinence, and has pyelonephritis clinically, and a positive urinalysis for pyuria. An ultrasound was performed yesterday to assess for any urinary tract stones or obstruction that can predispose her to frequent urinary tract infections, which was negative. Of note, she did not have any residual urine in her bladder at that time. -Continue IV hydration with normal saline -Continue IV ceftriaxone for now -Follow-up urine and blood cultures, and narrow antibiotics accordingly -Continue oxybutinin for bladder incontinence for now, but she had to be straight catheterized this morning at 8 AM and obtained 400 mL of urine. This will potentially can also cause of her medications- oxybutynin, donepezil, memantine. Will consider to decrease those/stopping one of these medications tomorrow again after reassessment. #Mechanical fall, secondary to physical deconditioning and weakness -Orthostatic vitals, not significant -We'll continue to monitor right knee for any changes tomorrow -IV hydration with normal saline -Physical therapy evaluation #Hypertension -Continue home medication with hydro-thiazides and metoprolol #Dementia -Continue memantine, donepezil, multivitamins, vitamin B12 #Depression -Continue home medication of citalopram #Continue albuterol, as home medication #Regular diet #DVT prophylaxis with subcutaneous Lovenox #DNR/DNI CODE STATUS Problem List: 1. Pyelonephritis Pain Ratin Pain Location: - Pain Goal: Remain pain free Pain Plan: prn Tomorrow's Labs & Rationales: CBC, BEP to follow up on infection and her renal function, as the patient cannot herself given us enough feeedback due to dementia
[2016-09-04 08:50] LABS: ABSOLUTE BASOPHIL COUNT 0 /CUMM (0.0-0.2); ABSOLUTE EOSINOPHIL COUNT 0.3 /CUMM (0.0-0.7); ABSOLUTE GRANULOCYTE CT 4.3 /CUMM (1.4-6.5); ABSOLUTE LYMPH COUNT 1.5 /CUMM (1.2-3.4); ABSOLUTE MONOCYTE COUNT 0.7 /CUMM (0.10-0.60); BASOPHIL % 0.6 % (0.0-2.0); GRANULOCYTE % 62.7 % (42.2-75.2); MEAN CORPUSCULAR HGB 28.9 PG (27.0-31.0); MEAN CORPUSCULAR HGB CONC 32.8 G/DL (33.0-37.0); MEAN PLATELET VOLUME 8.6 FL (7.4-10.4); PLATELET COUNT 165 /CUMM (130-400); RBC DISTRIBUTION WIDTH 15.9 % (11.5-14.5); WHITE BLOOD CELL COUNT 6.9 /CUMM (4.8-10.8)
[2016-09-04 09:04] LABS: HEMATOCRIT 34.3 % (37-47)
[2016-09-04 14:49] VITALS: BP 138/74
--- NOTE | 2016-09-04 15:18 | PN- Att Addend ---
Attending MD Review Statement Attending Statement Attending MD Statement: examined this patient, discuss w/resident/PA/FORENSIC ENGINEER, agreed w/resident/PA/FORENSIC ENGINEER, reviewed EMR data (avail), discussed w/nursing, discussed w/ case mgmt Attending Assessment/Plan: Laboratory Tests 09/04/16 0710: Anion Gap 7, Estimated GFR > 60, BUN/Creatinine Ratio 17.8, CBC w Diff NO MAN DIFF REQ, RBC 3.90 L, MCV 88.0, MCH 28.9, RDW 15.9 H, MPV 8.6, Gran % 62.7, Lymphocytes % 21.7, Monocytes % 10.0 H, Eosinophils % 5.0, Basophils % 0.6, Absolute Granulocytes 4.3, Absolute Lymphocytes 1.5, Absolute Monocytes 0.7 H, Absolute Eosinophils 0.3, Absolute Basophils 0, PUBS MCHC 32.8 L Vital Signs Date Time Temp Pulse Resp B/P Pulse O2 O2 Flow FiO2 Ox Delivery Rate 09/04 1449 98.0 62 20 138/74 98 09/04 1448 Room Air 09/04 1051 65 130/68 09/04 1051 65 130/68 09/04 0643 98.2 69 18 130/74 95 Room Air 09/03 2245 98.3 67 20 130/82 96 Room Air 09/03 2047 99.0 69 20 136/80 95 Room Air 09/03 2044 69 136/80 09/03 1845 99.6 80 18 112/70 95 Room Air 09/03 1604 80 18 119/57 98 Room Air Patient seen and examined at bedside. Discussed with patient's at bedside the care plan. Recurrent UTI-ultrasound done reveals no hydronephrosis and no urinary retention but bladder scan done this morning revealed 400 cc of urine. We will decrease her oxybutynin to 2.5 mg by mouth twice a day. Her white count has improved to 6.9 from 13.1. Her urinary tract infection could also be related to her being on Aricept and Namenda. We will discuss with the about stopping one of those. If he continues to retain urine we will completely stop oxybutynin.
--- NOTE | 2016-09-04 18:00 | NUR ---
PT ALERT, CONFUSED, SLIGHTLY APHASIC. VSS. BED ALARM IN PLACE. ALPS ON. PT INCONTINENT OF LARGE AMOUNT OF URINE. PT DOES FOLLOW COMMANDS. REQUESTED THAT BRIEF BE IN PLACE INSTEAD OF JUST USING THE BLUE PADS. BRIEF PLACED. WILL MONITOR.
--- NOTE | 2016-09-04 18:09 | NUR ---
PT ATTEMPTED TO GET OOB, REORIENTED AND REDIRECTED, PLACED BACK IN BED. BED ALARM REMAINS IN PLACE, RED SOCKS ON. 3RD SIDE RAIL PLACED IN UPRIGHT POSITION
[2016-09-04 22:37] VITALS: BP 136/70
[2016-09-05 06:42] VITALS: BP 122/76
--- NOTE | 2016-09-05 07:29 | PN- Housestaff ---
Subjective Follow-up For: Urinary tract infection, pyelonephritis Complaints: pt unable to provide hx, no complaints, dementia Subjective: Stable, comfortable, resting in a chair, denies any complaints, vitals stable overnight, no overnight issues Review of Systems Constitutional: Reports: no symptoms. Cardiovascular: Reports: no symptoms. Respiratory: Reports: no symptoms. Gastrointestinal: Reports: no symptoms. Genitourinary: Reports: no symptoms. Neurological/Psychological: Reports: confusion (not new). Objective Last 24 Hrs of Vital Signs/I&O Vital Signs Date Time Temp Pulse Resp B/P Pulse O2 O2 Flow FiO2 Ox Delivery Rate 09/05 1521 98.0 60 20 125/70 97 09/05 1129 Room Air 09/05 1124 Room Air 09/05 0852 98.1 130/84 09/05 0852 130/84 09/05 0642 99.3 73 18 122/76 96 Room Air 09/04 2237 98.2 69 20 136/70 97 Room Air Intake & Output 09/05 1600 09/05 0800 09/05 0000 Intake Total 1500 100 100 Output Total Balance 1500 100 100 Intake, Oral 1500 100 100 Number 0 Bowel Movements Physical Exam General Appearance: Alert, Oriented X3, Cooperative Other Physical Findings: General: obese patient, not in distress Head: Normocephalic, atraumatic Eyes: Pupils normal in size, regular, reacting to light and accommodation, EOM normal Ears: B/l normal on inspection Nose: Normal on inspection Throat/mouth: Dry mucosa Neck: Supple, full range of motion, no thyromegaly Heart: Regular rate, regular rhythm Lung: Normal breath sound bilaterally Added sound not heard Abd: Soft, CVA NOT tender today either, no distention appreciated Extremities: B/l knees can move easily, with mild erythema over right knee skin, no open wound, pedal edema present b/l Neurologic: Alert, demented at baseline, Speech is clear, is able to say "that hurts" on pain Skin: Warm and dry Current Medications: Current Medications Sig/Allen Start time Last Medication Dose Route Stop Time Status Admin Acetaminophen 325 MG Q6 PRN 09/03 1345 AC PO Albuterol Sulfate 2 PUF Q4-6 PRN PRN 09/03 1430 AC INH Calcium/Vitamin D 1 TAB DAILY 09/04 1000 AC 09/05 PO 0853 Ceftriaxone Sodium 1,000 MG DAILY 09/05 1000 AC 09/05 IV 0853 Citalopram 10 MG DAILY 09/04 1000 AC 09/05 Hydrobromide PO 0852 Cyanocobalamin 1,000 MCG DAILY 09/04 1000 AC 09/05 PO 0851 Donepezil HCl 10 MG AT BEDTIME 09/03 2200 AC 09/04 PO 2249 Enoxaparin Sodium 40 MG DAILY 09/03 1333 AC 09/05 SC 0853 Hydrochlorothiazide 12.5 MG DAILY 09/04 1000 AC 09/05 PO 0852 Lactobacillus 1 CAP DAILY 09/04 1000 AC 09/05 Acidophilus PO 0852 Levothyroxine Sodium 0.088 MG DAILY AC 09/04 0700 AC 09/05 PO 0610 Lisinopril 10 MG DAILY 09/04 1000 AC 09/05 PO 0852 Memantine 5 MG BID 09/03 2200 AC 09/05 PO 0852 Metoprolol Succinate 25 MG DAILY 09/04 1000 AC 09/05 PO 0852 Multivitamins 1 TAB DAILY 09/04 1000 AC 09/05 Therapeutic PO 0852 Oxybutynin Chloride 2.5 MG BID 09/04 2200 AC 09/05 PO 0851 Oxycodone HCl 5 MG Q6H PRN 09/03 1345 AC 09/03 PO 2223 Oxycodone/ 2 TAB Q6 PRN 09/03 1345 AC Acetaminophen PO Last 24 Hrs of Lab/Keagan Results Last 24 Hrs of Labs/Mics: Laboratory Tests 09/05/16 0745: Anion Gap 3 L, Estimated GFR > 60, BUN/Creatinine Ratio 15.6, CBC w Diff NO MAN DIFF REQ, RBC 3.87 L, MCV 87.1, MCH 28.9, RDW 15.7 H, MPV 8.6, Gran % 65.6, Lymphocytes % 20.6, Monocytes % 9.5 H, Eosinophils % 3.8, Basophils % 0.5, Absolute Granulocytes 5.1, Absolute Lymphocytes 1.6, Absolute Monocytes 0.7 H, Absolute Eosinophils 0.3, Absolute Basophils 0, PUBS MCHC 33.2 Assessment/Plan Assessment: 76 yo F with past medical history of dementia, hypertension, hyperlipidemia, hypothyroidism, GERD, recent admission at [facility] for UTI and a fall injury, was brought in by ambulance after sustaining to fall injuries earlier on the day of admission, and increasing weakness. Patient's vitals were stable on presentation at the emergency department, lab work was significant for leukocytosis at 13.1, with 84.9% granulocytes, and a positive urinalysis for pyuria. Urine culture was sent on the emergency department and the patient received 1 dose of IV antibiotics there. Chest x-ray was not significant for any cardiopulmonary pathology. Patient is currently being managed in the general medical floor for the following issues: #Urinary tract infection, pyelonephritis Patient is having a second episode of urinary tract infection within 3 months, has incontinence, and has pyelonephritis clinically, leukocytosis, and a positive urinalysis for pyuria. -Continue IV hydration with normal saline -Continue IV ceftriaxone for now, plan to discharge her tomorrow morning, switching her to PO abx. -Urine culture is showing Escherichia coli, sensitive to everything tested. -Continue oxybutynin at 2.5 mg as changed yesterday. Doesn't seem to have affected her with incontinence. Of note, she had urinary retention the night earlier, thus the change in dose. #Mechanical fall, secondary to physical deconditioning and weakness -Orthostatic vitals, not significant. The initial redness over her right knee is gone, patient is able to move her knees and walk around at ease, without pain. -IV hydration with normal saline -Physical therapy working together #Hypertension -Continue home medication with hydro-thiazides and metoprolol #Dementia -Continue memantine, donepezil, multivitamins, vitamin B12 #Depression -Continue home medication of citalopram #Continue albuterol, as home medication #Regular diet #DVT prophylaxis with subcutaneous Lovenox #DNR/DNI CODE STATUS Problem List: 1. Pyelonephritis Pain Ratin Pain Location: - Pain Goal: Remain pain free Pain Plan: prn Tomorrow's Labs & Rationales: CBC to follow up on her sepsis
[2016-09-05 08:42] LABS: ABSOLUTE BASOPHIL COUNT 0 /CUMM (0.0-0.2); ABSOLUTE EOSINOPHIL COUNT 0.3 /CUMM (0.0-0.7); ABSOLUTE GRANULOCYTE CT 5.1 /CUMM (1.4-6.5); ABSOLUTE LYMPH COUNT 1.6 /CUMM (1.2-3.4); ABSOLUTE MONOCYTE COUNT 0.7 /CUMM (0.10-0.60); BASOPHIL % 0.5 % (0.0-2.0); EOSINOPHIL % 3.8 % (0-5); GRANULOCYTE % 65.6 % (42.2-75.2); HEMATOCRIT 33.7 % (37-47); MEAN CORPUSCULAR HGB 28.9 PG (27.0-31.0); MEAN CORPUSCULAR HGB CONC 33.2 G/DL (33.0-37.0); MEAN CORPUSCULAR VOLUME 87.1 FL (81.0-99.0); MEAN PLATELET VOLUME 8.6 FL (7.4-10.4); PLATELET COUNT 180 /CUMM (130-400); RBC DISTRIBUTION WIDTH 15.7 % (11.5-14.5); RED BLOOD CELL CT 3.87 /CUMM (4.20-5.40); WHITE BLOOD CELL COUNT 7.7 /CUMM (4.8-10.8)
[2016-09-05] MEDS ORDERED: OXYBUTYNIN CHLOR5 M2 PO (09:33)
--- NOTE | 2016-09-05 09:33 | Patient Discharge Instructions ---
Discharge Instructions General Discharge Information You were seen/treated for: Urinary tract infection, pyelonephritis Mechanical fall Special Instructions: 1. Please finish the course of antibiotics as instructed. 2. Please follow up with your PCP within 1 week og discharge. Diet Recommended Diet: Heart Healthy Activity Full Activity/No Limits: Yes (as tolerated) Acute Coronary Syndrome Inclusion Criteria At DC or during hospital stay patient has or had the following: ACS DIAGNOSIS No Discharge Core Measures Meds if any: Prescribed or Continued at Discharge Meds if any: NOT Prescribed or Continued at Discharge Congestive Heart Failure Inclusion Criteria At DC or during hospital stay patient has or had the following: CHF DIAGNOSIS No Discharge Core Measures Meds if any: Prescribed or Continued at Discharge Meds if any: NOT Prescribed or Continued at Discharge Cerebrovascular accident Inclusion Criteria At DC or during hospital stay patient has or had the following: CVA/TIA Diagnosis No Discharge Core Measures Meds if any: Prescribed or Continued at Discharge Meds if any: NOT Prescribed or Continued at Discharge Venous thromboembolism Inclusion Criteria VTE Diagnosis No VTE Type NONE VTE Confirmed by (Test) NONE Discharge Core Measures - Per Current guidelines, there needs to be overlap - treatment for the first 5 days of Warfarin therapy. - If discharged on Warfarin prior to 5 days of - overlap therapy, the patient will need to be - assessed for post discharge needs including - *Post discharge parental anticoagulation - *Warfarin and/or parental anticoagulation education - *Follow up date to check INR post discharge At least 5 days overlap therapy as Inpatient No Meds if any: Prescribed or Continued at Discharge Note: Overlap Therapy is Warfarin and Anticoagulant Meds if any: NOT Prescribed or Continued at Discharge
[2016-09-05] MEDS ORDERED: BACTRIM DS TAB1 EACH PO ×3 (11:15→15:05)
--- NOTE | 2016-09-05 13:18 | Discharge Summary ---
See Addendum Visit Information Visit Dates Admission Date: 09/03/16 Discharge Date: 09/06/16 Hospital Course Course Attending Physician: ITA CH,JARVIS Taylor Primary Care Physician: UNKNOWN Hospital Course: Patient is a 76-year-old female with past medical history of dementia, hypertension, hyperlipidemia, GERD, hiatal hernia, hypothyroidism who was brought in by ambulance from rehabilitation facility with a chief complaint of weakness and fallsX2. In the ER vitals temperature 98.2, pulse 90, respiration 18, blood pressure 142/ 85, saturating 97% on room. White count of 13.1 with no bandemia, sodium 139, potassium 4, creatinine 0.9, BUN 15, normal LFTs, troponin negative. UA showed hazy urine, trace ketones, trace protein, nitrate positive, small leukocyte esterase, 25 -50 WBCs, many bacteria, small hemoglobin. CXR: NA Renal USG:Unremarkable renal ultrasound with no evidence of nephrolithiasis or hydronephrosis. Patient was treated in the hospital for: #Urinary tract infection? pyelonephritis: Patient was having a second episode of urinary tract infection within 3 months, had incontinence, and had , CVA tenderness on exam and a positive urinalysis for pyuria. She was hydrated with IV with normal saline and started on IV ceftriaxone. Renal ultrasound was negative for any hydronephrosis/stones. Urine cultures were positive for pansensitive Escherichia coli. Patient remained afebrile with normal white count during the hospital stay. She had h/o chronic incontinence which could have contributed to her UTI's. Her oxybutynin dose was reduced to 2.5 twice a day to prevent urinary retention. Patient worked with physical therapy to improve mobilization. She was discharged home with Bactrim to complete a total course of 7 days of antibiotics. She was initially planned to go back to her [facility] unit at [facility], however since patient was requiring an assist of two for ambulation, PT recommended STR to regain her strength back. #Hypertension: Continued home medication with hydro-thiazides and metoprolol #Dementia: Continued on memantine, donepezil, multivitamins, vitamin B12 #Depression: Continued home medication citalopram #Continued albuterol, home medication #Regular diet #DVT prophylaxis with subcutaneous Lovenox #DNR/DNI CODE STATUS Allergies: Coded Allergies: NO KNOWN ALLERGIES (09/03/16) Disposition Summary Disposition Principal Diagnosis: Urinary tract infection, pyelonephritis Additional Diagnosis: Mechanical fall Discharge Disposition: SNF Discharge Instructions General Discharge Information Code Status: Do Not Resucitate/Intubat Patient's Diet: regular diet Patient's Activity: as tolerated Follow-Up Instructions/Appts: 1. Please finish the course of antibiotics as instructed. 2. Please follow up with your PCP within 1 week og discharge. Medications at Discharge Discharge Medications: Stop taking the following medications: Oxybutynin Chloride (Oxybutynin Chloride ER) 10 MG TAB.ER.24 ORAL DAILY Continue taking these medications: Multivitamin (Daily Multiple Vitamin) 1 EACH TABLET 1 Tablet ORAL DAILY Comments: Last Taken: 09/08/16 Time: 10:45 AM Metoprolol Succinate (Metoprolol Succinate) 25 MG TAB 1 Tablet ORAL DAILY Qty = 28 Comments: Last Taken: 09/08/16 Time: 10:45 AM Memantine HCl/Donepezil HCl (Namzaric 14 MG-10 MG Capsule) 14 MG-10 MG CAP.SPR.24 1 Capsule ORAL DAILY Qty = 28 Comments: Last Taken: 09/08/16 Time: 10:45 AM Citalopram Hydrobromide (Citalopram HBr) 10 MG TABLET 1 Tablet ORAL DAILY Comments: Last Taken: 09/08/16 Time: 10:45 AM Ramipril (Ramipril) 10 MG CAPSULE 1 Capsule ORAL DAILY Comments: NOT GIVEN DURING THIS ADMISSION Hydrochlorothiazide (Hydrochlorothiazide) 12.5 MG TABLET 1 Tablet ORAL DAILY Comments: Last Taken: 09/08/16 Time: 10:45 AM Cyanocobalamin (Vitamin B-12) 1,000 MCG TABLET 1 Tablet ORAL DAILY Comments: Last Taken: 09/08/16 Time: 10:45 AM Calcium Carbonate/Vitamin D3 (Calcium + Vitamin D Tablet) 600 MG-200 TABLET 1 Tablet ORAL DAILY Comments: Last Taken: 09/08/16 Time: 10:45 AM Ubidecarenone (Co Q-10) 100 MG CAPSULE 1 Tablet ORAL DAILY E[place]-3 Fatty Acids/Fish Oil (Fish Oil 1,000 MG Capsule) 340 MG-1,000 MG CAPSULE 1 Capsule ORAL DAILY Comments: NOT GIVEN DURING THIS ADMISSION Acetaminophen (Mapap) 325 MG TABLET 2 Tablet ORAL DAILY Comments: Last Taken: 09/07/16 Time: 1800 Bifidobacterium Infantis (Align) 4 MG (1 BILLION CELL) CAPSULE 1 Capsule ORAL DAILY Comments: LACTOBACILLUS Last Taken: 09/08/16 Time: 1045 AM Levothyroxine Sodium (Levothyroxine Sodium) 88 MCG TABLET 1 Tablet ORAL DAILY BEFORE BREAKFAST Comments: Last Taken: 09/08/16 Time: 5:30 AM Ibuprofen (Ibuprofen) 400 MG TABLET 1 Tablet ORAL EVERY SIX HOURS NEEDED as needed for PAIN Albuterol Sulfate (Proair Hfa) 90 MCG HFA.AER.AD 2 Puff Inhale through mouth EVERY 4-6 HOURS NEEDED as needed for BREATHING PROBLEMS Comments: NOT GIVEN DURING THIS ADMISSION Start taking the following new medications: Oxybutynin Chloride (Oxybutynin Chloride) 5 MG TABLET 2.5 Milligram ORAL TWICE DAILY Days = 30 No Refills Comments: Last Taken: 09/08/16 Time: 10:45 AM Copies To: ITA CH,JARVIS Taylor Attending Review Statement Documenting Attending: KURT WHEELER M.D Other Findings: I have reviewed the discharge summary. Documenting Attending: KURT WHEELER M.D Other Findings: I have reviewed the discharge summary.
[2016-09-05 15:21] VITALS: BP 125/70
--- NOTE | 2016-09-05 15:57 | PN- Att Addend ---
Attending MD Review Statement Attending Statement Attending MD Statement: examined this patient, discuss w/resident/PA/DIRECTOR OF PHYSICAL SECURITY, agreed w/resident/PA/DIRECTOR OF PHYSICAL SECURITY, reviewed EMR data (avail), discussed w/nursing, discussed w/ case mgmt Attending Assessment/Plan: Laboratory Tests 09/05/16 0745: Anion Gap 3 L, Estimated GFR > 60, BUN/Creatinine Ratio 15.6, CBC w Diff NO MAN DIFF REQ, RBC 3.87 L, MCV 87.1, MCH 28.9, RDW 15.7 H, MPV 8.6, Gran % 65.6, Lymphocytes % 20.6, Monocytes % 9.5 H, Eosinophils % 3.8, Basophils % 0.5, Absolute Granulocytes 5.1, Absolute Lymphocytes 1.6, Absolute Monocytes 0.7 H, Absolute Eosinophils 0.3, Absolute Basophils 0, PUBS MCHC 33.2 Vital Signs Date Time Temp Pulse Resp B/P Pulse O2 O2 Flow FiO2 Ox Delivery Rate 09/05 1521 98.0 60 20 125/70 97 09/05 1129 Room Air 09/05 1124 Room Air 09/05 0852 98.1 130/84 09/05 0852 130/84 09/05 0642 99.3 73 18 122/76 96 Room Air 09/04 2237 98.2 69 20 136/70 97 Room Air Recurrent UTI-ultrasound done reveals no hydronephrosis and no urinary retention but bladder scan done on morning of 09/04 revealed 400 cc of urine. We decreased her oxybutynin to 2.5 mg by mouth twice a day. Her white count has improved . Her urinary tract infection could also be related to her being on Aricept and Namenda also on top of her incontinence. her urinary retention has resolved and her urine culture grew Escherichia coli which is pansensitive. We will switch her to Bactrim at time of discharge for a total of 7 days. Patient possibly will be discharged to a memory care unit or subacute rehabilitation tomorrow.
[2016-09-05 22:10] VITALS: BP 140/82
[2016-09-06 06:59] VITALS: BP 142/78
[2016-09-06 08:17] LABS: ABSOLUTE BASOPHIL COUNT 0 /CUMM (0.0-0.2); ABSOLUTE EOSINOPHIL COUNT 0.2 /CUMM (0.0-0.7); ABSOLUTE GRANULOCYTE CT 5.3 /CUMM (1.4-6.5); ABSOLUTE LYMPH COUNT 1.5 /CUMM (1.2-3.4); ABSOLUTE MONOCYTE COUNT 0.6 /CUMM (0.10-0.60); BASOPHIL % 0.5 % (0.0-2.0); EOSINOPHIL % 3.1 % (0-5); GRANULOCYTE % 68.5 % (42.2-75.2); HEMATOCRIT 34.9 % (37-47); MEAN CORPUSCULAR HGB CONC 33.1 G/DL (33.0-37.0); MEAN CORPUSCULAR VOLUME 87.7 FL (81.0-99.0); MEAN PLATELET VOLUME 8.9 FL (7.4-10.4); PLATELET COUNT 180 /CUMM (130-400); RBC DISTRIBUTION WIDTH 15.9 % (11.5-14.5); RED BLOOD CELL CT 3.97 /CUMM (4.20-5.40); WHITE BLOOD CELL COUNT 7.8 /CUMM (4.8-10.8)
--- NOTE | 2016-09-06 09:10 | PN- Housestaff ---
ALISA CH,AARON 09/06/16 0909: Subjective Follow-up For: Pyelonephritis Subjective: Patient is seen and examined at bedside while having breakfast with at bedside. Patient is demented at baseline and therefore most of the information is obtained from the . Patient does not endorse any acute complaints. No acute overnight event reported by nursing staff with no reported incidence of fever. Review of Systems Constitutional: Reports: no symptoms. Objective Last 24 Hrs of Vital Signs/I&O Vital Signs Date Time Temp Pulse Resp B/P Pulse O2 O2 Flow FiO2 Ox Delivery Rate 09/06 1434 98.1 71 20 143/75 98 Room Air 09/06 0918 70 142/88 09/06 0918 70 142/88 09/06 0659 98.4 59 20 142/78 97 Room Air 09/05 2210 98.5 63 20 140/82 97 Room Air 09/05 1521 98.0 60 20 125/70 97 Intake & Output 09/06 1600 09/06 0800 09/06 0000 Intake Total 80 600 Output Total Balance 80 600 Intake, Oral 80 600 Physical Exam General Appearance: Alert Other Physical Findings: Throat/mouth: Dry mucosa Neck: Supple, full range of motion, no thyromegaly Heart: Regular rate, regular rhythm Lung: Normal breath sound bilaterally Added sound not heard Abd: Soft, CVA NOT tender today either, no distention appreciated Extremities: B/l knees can move easily, with mild erythema over right knee skin, no open wound, pedal edema present b/l Neurologic: Alert, demented at baseline, Speech is clear, is able to say "that hurts" on pain Skin: Warm and dry Last 24 Hrs of Lab/Keagan Results Last 24 Hrs of Labs/Mics: Laboratory Tests 09/06/16 0640: CBC w Diff NO MAN DIFF REQ, RBC 3.97 L, MCV 87.7, MCH 29.0, RDW 15.9 H, MPV 8.9, Gran % 68.5, Lymphocytes % 19.5 L, Monocytes % 8.4, Eosinophils % 3.1, Basophils % 0.5, Absolute Granulocytes 5.3, Absolute Lymphocytes 1.5, Absolute Monocytes 0.6, Absolute Eosinophils 0.2, Absolute Basophils 0, PUBS MCHC 33.1 Assessment/Plan Assessment: 76 yo F with past medical history of dementia, hypertension, hyperlipidemia, hypothyroidism, GERD, recent admission at [place] for UTI and a fall injury, was brought in by ambulance after sustaining to fall injuries earlier on the day of admission, and increasing weakness. Patient's vitals were stable on presentation at the emergency department, lab work was significant for leukocytosis at 13.1, with 84.9% granulocytes, and a positive urinalysis for pyuria. Urine culture was sent on the emergency department and the patient received 1 dose of IV antibiotics there. Chest x-ray was not significant for any cardiopulmonary pathology. Patient is currently being managed in the general medical floor for the following issues: #Urinary tract infection, pyelonephritis Patient is having a second episode of urinary tract infection within 3 months, has incontinence, and has pyelonephritis clinically, leukocytosis, and a positive urinalysis for pyuria. -Continue IV hydration with normal saline -Continue IV ceftriaxone for now, plan to discharge her tomorrow morning, switching her to PO abx. -Urine culture is showing Escherichia coli, sensitive to everything tested. -Continue oxybutynin at 2.5 mg as changed yesterday. Doesn't seem to have affected her with incontinence. Of note, she had urinary retention the night earlier, thus the change in dose. #Mechanical fall, secondary to physical deconditioning and weakness -Orthostatic vitals, not significant. The initial redness over her right knee is gone, patient is able to move her knees and walk around at ease, without pain. -IV hydration with normal saline -Physical therapy working together #Hypertension -Continue home medication with hydro-thiazides and metoprolol #Dementia -Continue memantine, donepezil, multivitamins, vitamin B12 #Depression -Continue home medication of citalopram #Disposition: Patient is medically stable and was scheduled for discharge today however bed [facility] is currently not [facility]. Case management actively working on placement. Patient will remain the hospital for now. #Continue albuterol, as home medication #Regular diet #DVT prophylaxis with subcutaneous Lovenox #DNR/DNI CODE STATUS Problem List: 1. UTI (urinary tract infection) Pain Ratin Pain Location: none Pain Goal: Remain pain free Pain Plan: per pain pathway Tomorrow's Labs & Rationales: none-plan for discharge MARIA R CH,AMIR 09/06/16 1127: Attending MD Review Statement Attending Statement Attending MD Statement: examined this patient, discuss w/resident/PA/PRINCIPAL ANDROID DEVELOPER, agreed w/resident/PA/PRINCIPAL ANDROID DEVELOPER, discussed with family, reviewed EMR data (avail) Attending Assessment/Plan: Ms. Bucio was seen. Chart reviewed. No overnight nursing issues. VSS. As per RN, no BM yet. Initiate bowel regimen. Awaiting bed/placement. Rest of the plan as per resident's note
[2016-09-06 14:34] VITALS: BP 143/75
[2016-09-06 21:56] VITALS: BP 128/80
[2016-09-07 07:29] VITALS: BP 125/72
--- NOTE | 2016-09-07 07:48 | PN- Housestaff ---
MARY CH,HUMPHREY 09/07/16 0748: Subjective Follow-up For: Urinary tract infection Complaints: pt unable to provide hx, no complaints Subjective: Patient is comfortable, no complaints, vitals stable, no issues overnight. No abdomen/flank pain. Patient is awaiting placement and hopefully is a possible discharge tomorrow Review of Systems Constitutional: Reports: no symptoms. Cardiovascular: Reports: no symptoms. Respiratory: Reports: no symptoms. Gastrointestinal: Reports: no symptoms. Genitourinary: Reports: no symptoms. Musculoskeletal: Reports: no symptoms. Skin: Reports: no symptoms. Neurological/Psychological: Reports: see HPI. Objective Last 24 Hrs of Vital Signs/I&O Vital Signs Date Time Temp Pulse Resp B/P Pulse O2 O2 Flow FiO2 Ox Delivery Rate 09/07 1513 98.2 80 20 140/68 96 09/07 0919 65 130/70 09/07 0919 65 130/70 09/07 0729 98.5 61 20 125/72 96 09/06 2156 98.0 65 20 128/80 97 Room Air Intake & Output 09/07 1600 09/07 0800 09/07 0000 Intake Total 720 50 Output Total 200 Balance 520 50 Intake, Oral 720 50 Number 2 Bowel Movements Output, Urine 200 Physical Exam General Appearance: Alert, Cooperative, No Acute Distress Other Physical Findings: General: obese patient, not in distress Head: Normocephalic, atraumatic Eyes: Pupils normal in size, regular, reacting to light and accommodation, EOM normal Ears: B/l normal on inspection Nose: Normal on inspection Throat/mouth: Dry mucosa Neck: Supple, full range of motion, no thyromegaly Heart: Regular rate, regular rhythm Lung: Normal breath sound bilaterally Added sound not heard Abd: Soft, CVA NOT tender today either, no distention appreciated Extremities: B/l knees can move easily, with mild erythema over right knee skin, no open wound, pedal edema present b/l Neurologic: Alert, demented at baseline, Speech is clear, is able to say "that hurts" on pain Skin: Warm and dry Current Medications: Current Medications Sig/Allen Start time Last Medication Dose Route Stop Time Status Admin Acetaminophen 325 MG Q6 PRN 09/03 1345 AC / PO 1751 Albuterol Sulfate 2 PUF Q4-6 PRN PRN 09/03 1430 AC INH Bisacodyl 5 MG DAILY 09/06 1130 AC 09/07 PO 0918 Calcium/Vitamin D 1 TAB DAILY 09/04 1000 AC 09/07 PO 0918 Ceftriaxone Sodium 1,000 MG DAILY 09/05 1000 AC 09/07 IV 0918 Citalopram 10 MG DAILY 09/04 1000 AC 09/07 Hydrobromide PO 0919 Cyanocobalamin 1,000 MCG DAILY 09/04 1000 AC 09/07 PO 0919 Donepezil HCl 10 MG AT BEDTIME 09/03 2200 AC 09/06 PO 204 Enoxaparin Sodium 40 MG DAILY 09/03 1333 AC 09/07 SC 0918 Hydrochlorothiazide 12.5 MG DAILY 09/04 1000 AC 09/07 PO 0919 Lactobacillus 1 CAP DAILY 09/04 1000 AC 09/07 Acidophilus PO 0919 Levothyroxine Sodium 0.088 MG DAILY AC 09/04 0700 AC 09/07 PO 0600 Lisinopril 10 MG DAILY 09/04 1000 AC 09/07 PO 0919 Memantine 5 MG BID 09/03 2200 AC 09/07 PO 0919 Metoprolol Succinate 25 MG DAILY 09/04 1000 AC 09/07 PO 0919 Multivitamins 1 TAB DAILY 09/04 1000 AC 09/07 Therapeutic PO 0919 Oxybutynin Chloride 2.5 MG BID 09/04 2200 AC 09/07 PO 0918 Oxycodone HCl 5 MG Q6H PRN 09/03 1345 AC 09/03 PO 2223 Oxycodone/ 2 TAB Q6 PRN 09/03 1345 AC Acetaminophen PO Polyethylene Glycol 17 GM DAILY 09/06 1130 AC 09/07 PO 0918 Senna 187 MG AT BEDTIME 09/06 1130 AC 09/06 PO 204 Assessment/Plan Assessment: 76 yo F with past medical history of dementia, hypertension, hyperlipidemia, hypothyroidism, GERD, recent admission at [place] for UTI and a fall injury, was brought in by ambulance after sustaining to fall injuries earlier on the day of admission, and increasing weakness. Patient's vitals were stable on presentation at the emergency department, lab work was significant for leukocytosis at 13.1, with 84.9% granulocytes, and a positive urinalysis for pyuria. Urine culture was sent on the emergency department and the patient received 1 dose of IV antibiotics there. Chest x-ray was not significant for any cardiopulmonary pathology. Patient is currently being managed in the general medical floor for the following issues: #Urinary tract infection, pyelonephritis Patient is having a second episode of urinary tract infection within 3 months, has incontinence, and has pyelonephritis clinically, leukocytosis, and a positive urinalysis for pyuria. -Continue IV hydration with normal saline -Continue IV ceftriaxone for now, plan to discharge her tomorrow morning, switching her to PO abx. She is awaiting placement, so will be discharged possibly tomorrow. -Urine culture is showing Escherichia coli, sensitive to everything tested. -Continue oxybutynin at 2.5 mg #Mechanical fall, secondary to physical deconditioning and weakness -Orthostatic vitals, not significant. The initial redness over her right knee is gone, patient is able to move her knees and walk around at ease, without pain. -Physical therapy working together #Hypertension -Continue home medication with hydro-thiazides and metoprolol #Dementia -Continue memantine, donepezil, multivitamins, vitamin B12 #Depression -Continue home medication of citalopram #Disposition: Patient is medically stable and was scheduled for discharge today as well, however bed placement at senior living is currently not available. Case management actively working on placement. Patient will remain the hospital for now. #Continue albuterol, as home medication #Regular diet #DVT prophylaxis with subcutaneous Lovenox #DNR/DNI CODE STATUS Problem List: 1. UTI (urinary tract infection) Pain Ratin Pain Location: - Pain Goal: Remain pain free Pain Plan: prn Tomorrow's Labs & Rationales: CBC to f/u on sepsis, before dc MARIA R CH,AMIR 09/07/16 1121: Attending MD Review Statement Attending Statement Attending MD Statement: examined this patient, discuss w/resident/PA/CELL ROOM OPERATOR, agreed w/resident/PA/CELL ROOM OPERATOR, discussed with family, reviewed EMR data (avail), discussed with nursing
[2016-09-07 15:13] VITALS: BP 140/68
[2016-09-07 22:23] VITALS: BP 118/66
[2016-09-08 06:35] VITALS: BP 118/76
--- NOTE | 2016-09-08 07:33 | PN- Housestaff ---
MARY CH,HUMPHREY 09/08/16 0732: Subjective Follow-up For: Urinary tract infection Complaints: pt unable to provide hx Subjective: Patient is comfortable, no complaints, vitals stable, no issues overnight. No abdomen/flank pain. Review of Systems Constitutional: Reports: no symptoms. Cardiovascular: Reports: no symptoms. Respiratory: Reports: no symptoms. Gastrointestinal: Reports: no symptoms. Genitourinary: Reports: no symptoms. Neurological/Psychological: Reports: see HPI. Objective Last 24 Hrs of Vital Signs/I&O Vital Signs Date Time Temp Pulse Resp B/P Pulse O2 O2 Flow FiO2 Ox Delivery Rate 09/08 1148 97.8 80 18 118/76 03 1044 118/76 09/08 0635 97.8 80 18 118/76 95 Room Air 09/07 2223 98.7 84 18 118/66 94 Room Air Intake & Output 09/08 1600 09/08 0800 09/08 0000 Intake Total 600 120 360 Output Total 475 Balance 125 120 360 Intake, Oral 600 120 360 Number 1 0 Bowel Movements Output, Urine 475 Patient 100.698 kg Weight Physical Exam General Appearance: Alert, Cooperative, No Acute Distress Other Physical Findings: General: obese patient, not in distress Head: Normocephalic, atraumatic Eyes: Pupils normal in size, regular, reacting to light and accommodation, EOM normal Ears: B/l normal on inspection Nose: Normal on inspection Throat/mouth: Dry mucosa Neck: Supple, full range of motion, no thyromegaly Heart: Regular rate, regular rhythm Lung: Normal breath sound bilaterally Added sound not heard Abd: Soft, CVA NOT tender today either, no distention appreciated Extremities: B/l knees can move easily, with mild erythema over right knee skin, no open wound, pedal edema present b/l Neurologic: Alert, demented at baseline, Speech is clear, is able to say "that hurts" on pain Skin: Warm and dry Current Medications: Current Medications Sig/Allen Start time Last Medication Dose Route Stop Time Status Admin Acetaminophen 325 MG Q6 PRN 09/03 1345 DCD 09/07 PO 1751 Albuterol Sulfate 2 PUF Q4-6 PRN PRN 09/03 1430 DCD INH Bisacodyl 5 MG DAILY 09/06 1130 DCD 09/08 PO 1043 Calcium/Vitamin D 1 TAB DAILY 09/04 1000 DCD 09/08 PO 1043 Ceftriaxone Sodium 1,000 MG DAILY 09/05 1000 DC 09/08 IV 1044 Citalopram 10 MG DAILY 09/04 1000 DCD 09/08 Hydrobromide PO 1043 Cyanocobalamin 1,000 MCG DAILY 09/04 1000 DCD 09/08 PO 1043 Donepezil HCl 10 MG AT BEDTIME 09/03 2200 DCD 09/07 PO 2012 Enoxaparin Sodium 40 MG DAILY 09/03 1333 DCD 09/08 SC 1044 Hydrochlorothiazide 12.5 MG DAILY 09/04 1000 DCD 09/08 PO 1044 Lactobacillus 1 CAP DAILY 09/04 1000 DCD 09/08 Acidophilus PO 1044 Levothyroxine Sodium 0.088 MG DAILY AC 09/04 0700 DCD 09/08 PO 0526 Lisinopril 10 MG DAILY 09/04 1000 DCD 09/08 PO 1044 Memantine 5 MG BID 09/03 2200 DCD 09/08 PO 1044 Metoprolol Succinate 25 MG DAILY 09/04 1000 DCD 09/08 PO 1044 Multivitamins 1 TAB DAILY 09/04 1000 DCD 09/08 Therapeutic PO 1043 Oxybutynin Chloride 2.5 MG BID 09/04 2200 DCD 09/08 PO 1043 Oxycodone HCl 5 MG Q6H PRN 09/03 1345 DCD 09/03 PO 2223 Oxycodone/ 2 TAB Q6 PRN 09/03 1345 DCD Acetaminophen PO Polyethylene Glycol 17 GM DAILY 09/06 1130 DCD 09/08 PO 104 Senna 187 MG AT BEDTIME 09/06 1130 DCD 09/07 PO 2012 Last 24 Hrs of Lab/Keagan Results Last 24 Hrs of Labs/Mics: Laboratory Tests 09/08/16 0640: CBC w Diff NO MAN DIFF REQ, RBC 4.01 L, MCV 87.8, MCH 29.0, RDW 16.3 H, MPV 8.9, Gran % 66.1, Lymphocytes % 20.7, Monocytes % 8.8, Eosinophils % 3.8, Basophils % 0.6, Absolute Granulocytes 5.5, Absolute Lymphocytes 1.7, Absolute Monocytes 0.7 H, Absolute Eosinophils 0.3, Absolute Basophils 0, PUBS MCHC 33.0 Assessment/Plan Assessment: 76 yo F with past medical history of dementia, hypertension, hyperlipidemia, hypothyroidism, GERD, recent admission at [place] for UTI and a fall injury, was brought in by ambulance after sustaining to fall injuries earlier on the day of admission, and increasing weakness. Patient's vitals were stable on presentation at the emergency department, lab work was significant for leukocytosis at 13.1, with 84.9% granulocytes, and a positive urinalysis for pyuria. Urine culture was sent on the emergency department and the patient received 1 dose of IV antibiotics there. Chest x-ray was not significant for any cardiopulmonary pathology. Patient is currently being managed in the general medical floor for the following issues: #Urinary tract infection, pyelonephritis Patient is having a second episode of urinary tract infection within 3 months, has incontinence, and has pyelonephritis clinically, leukocytosis, and a positive urinalysis for pyuria. -IVF Dc'ed -Switched to PO abx and discharged today. Total seven days abx. -Urine culture is showing Escherichia coli, sensitive to everything tested. -Continue oxybutynin at 2.5 mg #Mechanical fall, secondary to physical deconditioning and weakness -Orthostatic vitals, not significant. -Physical therapy working together #Hypertension -Continue home medication with hydro-thiazides and metoprolol #Dementia -Continue memantine, donepezil, multivitamins, vitamin B12 #Depression -Continue home medication of citalopram #Continue albuterol, as home medication #Regular diet #DVT prophylaxis with subcutaneous Lovenox #DNR/DNI CODE STATUS Problem List: 1. Pyelonephritis 2. Contusion 3. Advanced dementia Pain Ratin Pain Location: - Cannot assess Pain Goal: Pain 4 or less Pain Plan: prn Tomorrow's Labs & Rationales: - KURT WHEELER MD 09/08/16 1548: Attending MD Review Statement Attending Statement Attending MD Statement: examined this patient, discuss w/resident/PA/METAL FABRICATING SHOP HELPER, agreed w/resident/PA/METAL FABRICATING SHOP HELPER, discussed with family, reviewed EMR data (avail), discussed with nursing, discussed with case mgmt, amended to note Attending Assessment/Plan: Patient seen and examined. Sitting down in the chair and not in any distress. present at the bedside. She remains afebrile and hemodynamically stable. [facility]. She remains medically stable to be discharged.
[2016-09-08 08:14] LABS: ABSOLUTE BASOPHIL COUNT 0 /CUMM (0.0-0.2); ABSOLUTE EOSINOPHIL COUNT 0.3 /CUMM (0.0-0.7); ABSOLUTE GRANULOCYTE CT 5.5 /CUMM (1.4-6.5); ABSOLUTE LYMPH COUNT 1.7 /CUMM (1.2-3.4); ABSOLUTE MONOCYTE COUNT 0.7 /CUMM (0.10-0.60); BASOPHIL % 0.6 % (0.0-2.0); EOSINOPHIL % 3.8 % (0-5); GRANULOCYTE % 66.1 % (42.2-75.2); HEMATOCRIT 35.2 % (37-47); MEAN CORPUSCULAR VOLUME 87.8 FL (81.0-99.0); MEAN PLATELET VOLUME 8.9 FL (7.4-10.4); PLATELET COUNT 202 /CUMM (130-400); RBC DISTRIBUTION WIDTH 16.3 % (11.5-14.5); RED BLOOD CELL CT 4.01 /CUMM (4.20-5.40); WHITE BLOOD CELL COUNT 8.3 /CUMM (4.8-10.8)
[2016-09-08] MEDS ORDERED: BACTRIM DS TAB1 EACH PO ×2 (08:30→10:56)
[2016-09-08 11:48] VITALS: BP 118/76
== END 2016-09-08 14:50 | DRG 690 ==
LOC: ENRESERVDT → ENRESERVTM → ERH 09:15 → 2NA 12:59 → ENPENDDIS 12:59 → 2NA 12:59 → ERHI 12:59 → 2NA 20:10
PROVIDERS: Emergency Medicine; Student in an Organized Health Care Education/Training Program; ADMIT Internal Medicine
DX: N39.0 Urinary tract infection, site not specified (principal); F03.90 Unspecified dementia, unspecified severity, without behavioral disturbance, psychotic disturbance, mood disturbance, and anxiety; I10 Essential (primary) hypertension; E78.5 Hyperlipidemia, unspecified; E03.9 Hypothyroidism, unspecified; K21.9 Gastro-esophageal reflux disease without esophagitis; E66.9 Obesity, unspecified; Z68.34 Body mass index [BMI] 34.0-34.9, adult; Z91.81 History of falling; S80.01XA Contusion of right knee, initial encounter; W18.30XA Fall on same level, unspecified, initial encounter; Y92.009 Unspecified place in unspecified non-institutional (private) residence as the place of occurrence of the external cause; K44.9 Diaphragmatic hernia without obstruction or gangrene
CPT/HCPCS: 2NAP; 36415; 76775; 81001; 82436; 87040; 87086; 93005; 93010; 96374; 97110-GO; 97112-GO; 97116-GO; 97161-GP; 97530-GO; J0696; J1650; J3490

== ENCOUNTER 2016-09-20 15:39 | Emergency (ER) | payer OTHER ==
[~2016-09-20] VITALS: Ht 162.6 cm; Wt 86.2 kg
[~2016-09-20 15:39] MED LIST changes: +ALIGN4 M1 PO; +BACTRIM DS TAB1 EACH PO; +CALCIUM + VITA1 EAC1 PO; +CITALOPRAM HBR10 MG PO; +CO Q-10100 MG PO; +FISH OIL 1,0001 EACH PO; +HYDROCHLOROTH12.5 M2 PO; +LEVOTHYROXINE88 MCG PO; +MAPAP325 M1 PO; +OXYBUTYNIN CHLO10 M1 PO; +OXYBUTYNIN CHLOR5 M2 PO; +RAMIPRIL10 M1 PO; +VITAMIN B-121000 MC3 PO
--- NOTE | 2016-09-20 15:48 | ED GENERAL ADULT ---
History of Present Illness General Chief Complaint: Altered Mental Status Stated Complaint: BIBA AMS Source: patient, family, EMS Exam Limitations: confusion, dementia Vital Signs & Intake/Output Vital Signs & Intake/Output Vital Signs Date Time Temp Pulse Resp B/P Pulse O2 O2 Flow FiO2 Ox Delivery Rate 09/20 1900 97.8 74 18 127/75 97 Room Air 09/20 1744 98.4 78 18 134/62 98 Room Air 09/20 1600 Room Air 09/20 1545 98.2 84 18 110/57 96 Room Air Allergies Coded Allergies: NO KNOWN ALLERGIES (09/03/16) Reconcile Medications Acetaminophen (Mapap) 325 MG TABLET 2 TAB PO DAILY PAIN (Reported) Albuterol Sulfate (Proair Hfa) 90 MCG HFA.AER.AD 2 PUF INH Q4-6 PRN PRN BREATHING PROBLEMS (Reported) Bifidobacterium Infantis (Align) 4 MG (1 BILLION CELL) CAPSULE 1 CAP PO DAILY GI (Reported) Calcium Carbonate/Vitamin D3 (Calcium + Vitamin D Tablet) 600 MG-200 TABLET 1 TAB PO DAILY SUPPLEMENT (Reported) Citalopram Hydrobromide (Citalopram HBr) 10 MG TABLET 1 TAB PO DAILY MENTAL HEALTH (Reported) Cyanocobalamin (Vitamin B-12) 1,000 MCG TABLET 1 TAB PO DAILY SUPPLEMENT ( Reported) Hydrochlorothiazide 12.5 MG TABLET 1 TAB PO DAILY WATER PILL (Reported) Ibuprofen 400 MG TABLET 1 TAB PO Q6P PRN PAIN (Reported) Levothyroxine Sodium 88 MCG TABLET 1 TAB PO DAILY AC THYROID (Reported) Memantine HCl/Donepezil HCl (Namzaric 14 MG-10 MG Capsule) 14 MG-10 MG CAP.SPR.24 1 CAP PO DAILY DEMENTIA (Reported) Metoprolol Succinate 25 MG TAB 1 TAB PO DAILY HEART (Reported) Multivitamin (Daily Multiple Vitamin) 1 EACH TABLET 1 TAB PO DAILY SUPPLEMENT (Reported) [place]-3 Fatty Acids/Fish Oil (Fish Oil 1,000 MG Capsule) 340 MG-1,000 MG CAPSULE 1 CAP PO DAILY SUPPLEMENT (Reported) Oxybutynin Chloride 5 MG TABLET 2.5 MG PO BID INCONTINENT BLADDER Ramipril 10 MG CAPSULE 1 CAP PO DAILY UNKNOWN (Reported) Ubidecarenone (Co Q-10) 100 MG CAPSULE 1 TAB PO DAILY SUPPLEMENT (Reported) Triage Nurses Notes Reviewed? yes Onset: Abrupt Duration: hour(s): Timing: recent history HPI: 09/20/16 3:46 PM 76-year-old female presents to the emergency department for altered mental status. According to EMS and the patient's family she was in her usual state of health until this morning when she was lethargic and not responding. She is confused at baseline secondary to dementia and has had 2 recent episodes of UTI, one in June of this year at [facility]; and also approximately a month ago she was treated here. Now she presents with lethargy this morning and being more confused. Here in the emergency department she is back to her baseline mental status; she is awake and alert. She is however pleasantly confused. She denies any complaints. Her physical exam reveals no focal weakness. The onset of the symptoms were abrupt, the duration is approximately 8 hours prior to arrival, the severity is significant as her symptoms required her to come to the emergency department by ambulance. Past History Travel History Traveled to [place] past 21 day No Medical History Any Pertinent Medical History? 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 No Review of Systems Review of Systems Constitutional: Denies: fever. EENTM: Denies: visual changes. Respiratory: Denies: short of breath. Cardiovascular: Denies: chest pain. GI: Denies: abdominal pain. Genitourinary: Reports: no symptoms. Musculoskeletal: Reports: no symptoms. Skin: Reports: no symptoms. Neurological/Psychological: Reports: confusion. Hematologic/Endocrine: Denies: bruising, bleeding. Physical Exam Physical Exam General Appearance: alert, awake, anxious, confused = baseline Head: atraumatic, normal appearance Eyes: Bilateral: normal appearance, PERRL, EOMI. Ears, Nose, Throat: normal pharynx, normal ENT inspection Neck: normal inspection, supple, full range of motion Respiratory: normal breath sounds, chest non-tender, no respiratory distress Cardiovascular: regular rate/rhythm Peripheral Pulses: 4+ radial (R), 4+ radial (L) Gastrointestinal: soft, non-tender Back: normal range of motion Extremities: pedal edema Neurologic/Psych: no motor/sensory deficits (no focal weakness), awake, alert Skin: intact, normal color, warm/dry Core Measures ACS in differential dx? No CVA/TIA Diagnosis: No Severe Sepsis Present: No Septic Shock Present: No Progress Differential Diagnoses I considered the following diagnoses in my evaluation of the patient: [UTI, adverse drug reaction, TIA, CVA, sepsis] Plan of Care: Orders Procedure Date/time Status Add-on Test (ER Only) 09/20 1722 Active THYROID STIMULATING HORMONE 09/20 1558 Complete THYROXINE 09/20 1558 Complete CULTURE,URINE 09/20 1549 Active URINE DRUG SCREEN FOR ER ONLY 09/20 1549 Complete URINALYSIS 09/20 1549 Complete TROPONIN LEVEL 09/20 154 Complete COMPREHENSIVE METABOLIC PANEL 09/20 154 Complete CBC WITHOUT DIFFERENTIAL 09/20 154 Complete EKG 09/20 1549 Active Laboratory Tests 09/20/16 1620: Urine Opiates Screen < 100.00, Methadone Screen 57, Barbiturate Screen < 60, Ur Phencyclidine Scrn < 6.00, Amphetamines Screen 277, U Benzodiazepines Scrn < 85, Urine Cocaine Screen < 50, Urine Cannabis Screen < 5.00, Urinalysis LIGHT H, Urine Color YEL, Urine Clarity CLEAR, Urine pH 6.0, Ur Specific [place] 1.025, Urine Protein TRACE H, Urine Ketones NEG, Urine Nitrite NEG, Urine Bilirubin NEG, Urine Urobilinogen 0.2, Ur Leukocyte Esterase NEG, Ur Microscopic SEDIMENT EXAMINED, Urine RBC 1-3, Ur Epithelial Cells RARE, Urine Bacteria FEW H, Urine Mucus FEW, Urine Hemoglobin SMALL H, Urine Glucose 250 H 09/20/16 1558: Anion Gap 12, Estimated GFR > 60, BUN/Creatinine Ratio 26.3 H, Glucose 141 H, Calcium 9.0, Total Bilirubin 0.6, AST 35, ALT 47, Alkaline Phosphatase 68, Troponin I 0.02, Total Protein 7.2, Albumin 3.8, Globulin 3.4, Albumin/Globulin Ratio 1.1, TSH 5.630 H, Thyroxine (T4) 10.2, CBC w Diff NO MAN DIFF REQ, RBC 4.51, MCV 87.2, MCH 28.4, RDW 15.8 H, MPV 8.3, Gran % 77.0 H, Lymphocytes % 12.2 L, Monocytes % 9.2, Eosinophils % 0.9, Basophils % 0.7, Absolute Granulocytes 10.7 H, Absolute Lymphocytes 1.7, Absolute Monocytes 1.3 H, Absolute Eosinophils 0.1, Absolute Basophils 0.1, PUBS MCHC 32.6 L Microbiology 09/20 1620 URINE ROUT: Urine Culture - RECD Initial ED EKG: NSR Departure Departure Disposition: STILL A PATIENT Condition: Stable Clinical Impression Primary Impression: Altered mental status Referrals: UNKNOWN (PCP/Family) Departure Forms: Customer Survey General Discharge Information Comments 09/20/16 6:50 PM The patient's mental status is back to baseline according to the and daughter. Labs, reveal azotemia, minimal leukocytosis. Urinalysis is unremarkable. Chest x-ray - no acute findings, CT head no acute findings, Urine tox does show trace methadone level. The patient is not on any opiates by history. The patient will be transported back to the assisted care facility. She will be monitored closely they will bring her back should she have fever or should her mental status deteriorate in any way. Critical Care Note Critical Care Note Critical Care Time: non-applicable
[2016-09-20 16:04] LABS: ABSOLUTE BASOPHIL COUNT 0.1 /CUMM (0.0-0.2); ABSOLUTE EOSINOPHIL COUNT 0.1 /CUMM (0.0-0.7); ABSOLUTE GRANULOCYTE CT 10.7 /CUMM (1.4-6.5); ABSOLUTE LYMPH COUNT 1.7 /CUMM (1.2-3.4); ABSOLUTE MONOCYTE COUNT 1.3 /CUMM (0.10-0.60); BASOPHIL % 0.7 % (0.0-2.0); EOSINOPHIL % 0.9 % (0-5); HEMATOCRIT 39.3 % (37-47); MEAN CORPUSCULAR HGB 28.4 PG (27.0-31.0); MEAN CORPUSCULAR HGB CONC 32.6 G/DL (33.0-37.0); MEAN CORPUSCULAR VOLUME 87.2 FL (81.0-99.0); MEAN PLATELET VOLUME 8.3 FL (7.4-10.4); PLATELET COUNT 284 /CUMM (130-400); RBC DISTRIBUTION WIDTH 15.8 % (11.5-14.5); RED BLOOD CELL CT 4.51 /CUMM (4.20-5.40); WHITE BLOOD CELL COUNT 13.9 /CUMM (4.8-10.8)
--- NOTE | 2016-09-20 16:44 | CT SCAN REPORT ---
EXAMINATION: CT HEAD WITHOUT CONTRAST CLINICAL INFORMATION: Acute mental status changes. COMPARISON: CT scan of the head dated 08/02/2013. TECHNIQUE: Contiguous axial imaging was performed from the skull base to vertex without intravenous administration of contrast. DLP: 600.71 mGy-cm FINDINGS: There is no evidence of acute intracranial hemorrhage or territorial infarction. No abnormal mass effect or midline shift is seen. Stanley to white matter differentiation is well preserved. No extra-axial fluid collections are identified. The ventricles are diffusely and progressively enlarged compared to 08/02/2013. There is moderate sulcal enlargement. There is mild periventricular low attenuation seen, possibly representing transependymal flow versus ischemic small vessel disease. The osseous structures and soft tissues are normal. The mastoid air cells and visualized portions of the paranasal sinuses are well aerated. IMPRESSION: Mild progressive diffuse enlargement of the ventricles is seen. In the setting of mental status changes, close clinical correlation is requested to exclude normal pressure hydrocephalus. No other acute findings.
--- NOTE | 2016-09-20 17:02 | RADIOLOGY REPORT ---
EXAMINATION: XR PORTABLE CHEST CLINICAL INFORMATION: Altered mental status. COMPARISON: Chest 09/03/2016. TECHNIQUE: Portable AP view of the chest was obtained. FINDINGS: Both lungs are fairly well-expanded and clear. Heart size and pulmonary vascularity is normal. No gross bony abnormality seen. IMPRESSION: Unremarkable chest exam.
[2016-09-20 19:00] VITALS: BP 127/75
== END 2016-09-20 19:00 ==
LOC: ERH 15:39
PROVIDERS: Emergency Medicine
DX: R41.82 Altered mental status, unspecified (principal)
CPT/HCPCS: 80307; 81001; 87086; 93005; 93010

== ENCOUNTER 2016-10-09 00:21 | Emergency (ER) | payer OTHER ==
--- NOTE | 2016-10-09 00:29 | ED GENERAL ADULT ---
History of Present Illness General Chief Complaint: Fall Stated Complaint: BIBA FALL Source: old records, EMS Exam Limitations: dementia Vital Signs & Intake/Output Vital Signs & Intake/Output Vital Signs Date Time Temp Pulse Resp B/P B/P Pulse O2 O2 Flow FiO2 Mean Ox Delivery Rate 10/09 0233 97.1 88 18 132/64 97 Room Air 10/09 0025 97.1 94 18 137/61 98 Room Air Allergies Coded Allergies: NO KNOWN ALLERGIES (09/03/16) Reconcile Medications Acetaminophen (Mapap) 325 MG TABLET 2 TAB PO DAILY PAIN (Reported) Albuterol Sulfate (Proair Hfa) 90 MCG HFA.AER.AD 2 PUF INH Q4-6 PRN PRN BREATHING PROBLEMS (Reported) Bifidobacterium Infantis (Align) 4 MG (1 BILLION CELL) CAPSULE 1 CAP PO DAILY GI (Reported) Calcium Carbonate/Vitamin D3 (Calcium + Vitamin D Tablet) 600 MG-200 TABLET 1 TAB PO DAILY SUPPLEMENT (Reported) Citalopram Hydrobromide (Citalopram HBr) 10 MG TABLET 1 TAB PO DAILY MENTAL HEALTH (Reported) Cyanocobalamin (Vitamin B-12) 1,000 MCG TABLET 1 TAB PO DAILY SUPPLEMENT ( Reported) Hydrochlorothiazide 12.5 MG TABLET 1 TAB PO DAILY WATER PILL (Reported) Ibuprofen 400 MG TABLET 1 TAB PO Q6P PRN PAIN (Reported) Levothyroxine Sodium 88 MCG TABLET 1 TAB PO DAILY AC THYROID (Reported) Memantine HCl/Donepezil HCl (Namzaric 14 MG-10 MG Capsule) 14 MG-10 MG CAP.SPR.24 1 CAP PO DAILY DEMENTIA (Reported) Metoprolol Succinate 25 MG TAB 1 TAB PO DAILY HEART (Reported) Multivitamin (Daily Multiple Vitamin) 1 EACH TABLET 1 TAB PO DAILY SUPPLEMENT (Reported) [place]-3 Fatty Acids/Fish Oil (Fish Oil 1,000 MG Capsule) 340 MG-1,000 MG CAPSULE 1 CAP PO DAILY SUPPLEMENT (Reported) Oxybutynin Chloride 5 MG TABLET 2.5 MG PO BID INCONTINENT BLADDER Ramipril 10 MG CAPSULE 1 CAP PO DAILY UNKNOWN (Reported) Ubidecarenone (Co Q-10) 100 MG CAPSULE 1 TAB PO DAILY SUPPLEMENT (Reported) Triage Nurses Notes Reviewed? yes HPI: Patient brought in from assisted living for a possible fall. EMS was contacted because staff thinks that the patient might have fallen. Patient has dementia and is unable to provide any history. Staff cannot tell EMS why they felt that she fell. There is no evidence of trauma on the patient or in the department. Patient has no complaints. Cervical collar was placed in the field and the patient was brought in for evaluation. Past History Travel History Traveled to [place] past 21 day No Medical History Any Pertinent Medical History? 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 No Review of Systems Review of Systems Constitutional: Reports: see HPI. Physical Exam Physical Exam General Appearance: well developed/nourished, no apparent distress, awake Head: atraumatic, normal appearance Eyes: Bilateral: PERRL, EOMI. Ears, Nose, Throat: normal pharynx, normal ENT inspection, hearing grossly normal Neck: normal inspection, supple, full range of motion, no midline tenderness Respiratory: normal breath sounds, chest non-tender, no respiratory distress, lungs clear Cardiovascular: regular rate/rhythm, normal peripheral pulses Gastrointestinal: normal bowel sounds, soft, non-tender, no organomegaly Back: normal inspection, normal range of motion Extremities: normal inspection, normal capillary refill, normal range of motion, no edema Neurologic/Psych: no motor/sensory deficits, awake, normal mood/affect Skin: intact, normal color, warm/dry Lymphatic: no anterior cervical sixto Core Measures ACS in differential dx? No CVA/TIA Diagnosis: No Severe Sepsis Present: No Septic Shock Present: No Progress Differential Diagnoses I considered the following diagnoses in my evaluation of the patient: [HEAD INJURY, CEVICAL INJURY] Plan of Care: Orders Procedure Date/time Status CT HEAD WO IV CONTRAST 10/[address] CERV SPINE WO IV CONTRAST 10/10 27 Active Diagnostic Imaging: Viewed by Me: CT Scan. Discussed w/RAD: CT Scan. Radiology Impression: PATIENT: ALICIA CASEY PRESENT AGE: 76 PATIENT ACCOUNT NO: [id number] : 42 LOCATION: [facility] ORDERING PHYSICIAN: JAZMINE REARDON MD SERVICE DATE: 10/09/16 EXAM TYPE: CAT - CT CERV SPINE WO IV CONTRAST; CT HEAD WO IV CONTRAST EXAMINATION: NONCONTRAST HEAD CT NONCONTRAST CERVICAL SPINE CT INDICATION INFORMATION: Fall COMPARISON: 09/20/2016 TECHNIQUE: Separate noncontrast CT examinations of the head and cervical spine were performed. Coronal and sagittal images were created for each examination at the technologist workstation. DLP: 937.05 mGy-cm FINDINGS: Head: There is no evidence of acute intracranial hemorrhage or territorial infarction. No abnormal mass-effect or midline shift is seen. Stanley to white matter differentiation is well preserved. No extra-axial fluid collections are identified. Ventricular prominence appears unchanged from prior. There is mild to moderate periventricular white matter hypoattenuation consistent with chronic small vessel ischemic disease. Mild volume loss is noted. The osseous structures and soft tissues are normal. The mastoid air cells and visualized portions of the paranasal sinuses are well-aerated. Cervical spine: There is anatomic alignment of the vertebral bodies and posterior elements. There is degenerative change at the atlantodens articulation. Vertebral body heights are maintained. There is disc space narrowing at C5-C6 and C6-C7 with associated endplate osteophyte formation. There is scattered multilevel facet arthropathy. No evidence of acute fracture. No prevertebral soft tissue swelling. Visualized portions of the lung apices are unremarkable. The thyroid gland is unremarkable. IMPRESSION: 1. Head: No acute intracranial findings. Chronic small vessel ischemic disease and volume loss. 2. Cervical spine: No acute findings identified. Multilevel degenerative changes. DICTATED BY: EDDIE PERDOOM MD DATE/TIME DICTATED:10/09/16140 BURR MACHINE OPERATOR:FRANNY DATE/TIME TRANSCRIBED:10/09/16140 CONFIDENTIAL, DO NOT COPY WITHOUT APPROPRIATE AUTHORIZATION. <Electronically signed in Other Vendor System> SIGNED BY: EDDIE PERDOMO MD 10/09/16 0154 Initial ED EKG: none Departure Departure Disposition: HOME OR SELF CARE Condition: Stable Clinical Impression Primary Impression: Head injury Referrals: UNKNOWN Additional Instructions: RETURN FOR ANY CONCERNS Departure Forms: Customer Survey General Discharge Information Critical Care Note Critical Care Note Critical Care Time: non-applicable
--- NOTE | 2016-10-09 01:54 | CT SCAN REPORT ---
EXAMINATION: NONCONTRAST HEAD CT NONCONTRAST CERVICAL SPINE CT INDICATION INFORMATION: Fall COMPARISON: 09/20/2016 TECHNIQUE: Separate noncontrast CT examinations of the head and cervical spine were performed. Coronal and sagittal images were created for each examination at the technologist workstation. DLP: 937.05 mGy-cm FINDINGS: Head: There is no evidence of acute intracranial hemorrhage or territorial infarction. No abnormal mass-effect or midline shift is seen. Stanley to white matter differentiation is well preserved. No extra-axial fluid collections are identified. Ventricular prominence appears unchanged from prior. There is mild to moderate periventricular white matter hypoattenuation consistent with chronic small vessel ischemic disease. Mild volume loss is noted. The osseous structures and soft tissues are normal. The mastoid air cells and visualized portions of the paranasal sinuses are well-aerated. Cervical spine: There is anatomic alignment of the vertebral bodies and posterior elements. There is degenerative change at the atlantodens articulation. Vertebral body heights are maintained. There is disc space narrowing at C5-C6 and C6-C7 with associated endplate osteophyte formation. There is scattered multilevel facet arthropathy. No evidence of acute fracture. No prevertebral soft tissue swelling. Visualized portions of the lung apices are unremarkable. The thyroid gland is unremarkable. IMPRESSION: 1. Head: No acute intracranial findings. Chronic small vessel ischemic disease and volume loss. 2. Cervical spine: No acute findings identified. Multilevel degenerative changes.
[2016-10-09 02:33] VITALS: BP 132/64
== END 2016-10-09 02:35 ==
LOC: ERH 00:21
DX: S09.90XA Unspecified injury of head, initial encounter (principal); X58.XXXA Exposure to other specified factors, initial encounter; Y92.129 Unspecified place in nursing home as the place of occurrence of the external cause; Y93.9 Activity, unspecified